=== PATIENT | female | born 1950 | race Caucasian/White ===

== ENCOUNTER 2018-01-03 15:46 | Observation (INO) ==
[2018-01-03] MEDS ORDERED: GI Cocktail 40 ML EACH PO ONE (16:00)
[2018-01-03] MEDS ORDERED: Aspirin 81 MG TAB.CHEW PO ONE (16:00)
--- NOTE | 2018-01-03 16:02 | Emergency Department Note ---
Disposition Clinical Impression: Chest pain Qualifiers: Chest pain type: unspecified Qualified Code(s): R07.9 - Chest pain, unspecified Disposition: Admitted As Inpatient Condition: Good Chest Pain HPI - General Stated Complaint: CP Time Seen by Provider: 01/03/18 15:52 Source: patient Mode of arrival: wheelchair Limitations: no limitations Vital Signs Reviewed: Yes Nursing Notes Reviewed: Yes - History of Present Illness HPI Narrative: Patient presents via wheelchair to the ED with the chief complaint of chest pain. Patient reports that she started having some epigastric and retrosternal chest discomfort last night that lasted for several hours. States that it felt like reflux and she drank an entire bottle of Pepcid without relief. Woke up this morning and went to her appointment with her lung specialist for COPD and had a recurrence of her pain, but this time. She states it doubled her over. Was associated with some mild diaphoresis and shortness of breath. She does state she is more short of breath than usual and it is exertional. Her pain is gone now, but she did describe it as a heavy pressure and burning sensation. Did radiate through to her back. Was not tearing or ripping. Did not get any numbness, weakness or heaviness associated with it. No abdominal pain. Some nausea but no vomiting. She did have a heart catheter 5 years ago that she reports was unremarkable and a stress test about 2 years ago. No Stents or bypasses. However, her medical record does indicate a history of coronary artery disease - Related Data Home Medications Medication Instructions Recorded Confirmed Acetylcysteine 600 mg PO BID 01/03/18 01/03/18 [R-Obipmf-t-Cysteine] Albuterol Neb [Proventil Neb] 2.5 mg IH TID 01/03/18 01/03/18 Albuterol Sulfate [Proair Hfa] 2 puff IH DAILY PRN 01/03/18 01/03/18 Aspirin Enteric Coated [Aspirin EC] 81 mg PO DAILY 01/03/18 01/03/18 Diclofenac Sodium [Voltaren] 1 appl TP QID 01/03/18 01/03/18 Furosemide [Lasix] 40 mg PO DAILY 01/03/18 01/03/18 Gabapentin [Neurontin] 800 mg PO TID 01/03/18 01/03/18 LORazepam [Ativan] 0.5 mg PO Q6H PRN 01/03/18 01/03/18 Mometasone/Formoterol [Dulera 200 2 puff IH BID 01/03/18 01/03/18 Mcg/5 Mcg Inhaler] Nitroglycerin [Nitrostat] 0.4 mg SL Q5MIN PRN 01/03/18 01/03/18 Omeprazole [PriLOSEC] 20 mg PO DAILY 01/03/18 01/03/18 Oxygen 2 l IH DAILY 01/03/18 01/03/18 Theophylline Anhydrous [Theodur] 0.5 tab PO BID 01/03/18 01/03/18 Tiotropium [Spiriva] 18 mcg IH 0700 01/03/18 01/03/18 Valsartan [Diovan] 160 mg PO DAILY 01/03/18 01/03/18 Zafirlukast [Accolate] 20 mg PO BID 01/03/18 01/03/18 amLODIPine [Norvasc] 5 mg PO DAILY 01/03/18 01/03/18 hydroCHLOROthiazide 25 mg PO DAILY 01/03/18 01/03/18 [Hydrochlorothiazide] Allergies Allergy/AdvReac Type Severity Reaction Status Date / Time hydroxyzine [From Vistaril] Allergy Rash Verified 02/06/16 09:44 prednisone Allergy Rash Verified 02/06/16 09:44 Review of Systems: As reviewed in the HPI. All other systems reviewed are negative or normal. 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 - Social History Smoking Status: Former smoker Alcohol use: Reports: none Drug use: Reports: none Physical Exam CONSTITUTIONAL: [well appearing, alert and in no acute distress] EYES: [EOMI, clear conjunctiva, PERRLA] HENT: [Normocephalic, atraumatic, moist mucus membranes, normal oropharynx] NECK: [normal inspection, full ROM, trachea midline, no obvious swelling] PULMONARY: [normal lung sounds bilaterally, decreased breath sounds bilateral bases, normal chest rise and fall, no respiratory distress or stridor, no wheezes, no rales, no rhonchi CARDIOVASCULAR: [regular rate, regular rhythm, normal heart sounds, no murmurs, distal extremities are warm and well perfused] GASTROINSTESTINAL: [soft, non-tender, non-rigid, non-distended, no guarding, no rebound, normal bowel sounds] GENITOURINARY/RECTAL: [deferred] NEUROLOGIC: [Alert, oriented x3, normal speech, moves all extremities] EXTREMITIES: [Normal inspection, full ROM, no tenderness, no pedal edema, normal capillary refill] MUSCULOSKELETAL: [no gross deformities, atraumatic] SKIN: [No cyanosis, no diaphoresis, normal color, warm, no rash] PSYCHIATRIC: [normal mood and affect] Course Course Narrative: Patient presenting with chest pain. Assuming her troponin is normal. Her heart score is 5. We will admit for further workup. - Reevaluation(s) Reevaluation #1: Patient admitted to the hospital service. Patient states that the GI cocktail helped the pain that was in her throat, but that she still was having the different pain. She described earlier in the left side of her chest. She now states that the pain had been previously radiating to her jaw, left trapezius and into her left shoulder. Patient was agreeable with admission. Vital Signs Temperature 97.9 F 01/03/18 16:09 Pulse Rate 79 01/03/18 16:09 Respiratory Rate 14 01/03/18 16:09 Blood Pressure 154/83 01/03/18 16:09 O2 Sat by Pulse Oximetry 97 01/03/18 16:09 Temperature 97.9 F 01/03/18 16:09 Pulse Rate 74 01/03/18 19:17 Respiratory Rate 18 01/03/18 19:27 Blood Pressure 152/97 01/03/18 19:27 O2 Sat by Pulse Oximetry 96 01/03/18 19:17 Oxygen Delivery Oxygen Delivery Room Air Chest Pain - MDM Narrative Medical decision making narrative: Chest X-Ray 01/03/18 16:00 IMPRESSION: No acute focal airspace consolidation. D/ / Al Wallace MD / Al Wallace MD Interpreting Provider: Al Wallace MD 1800 hrs. No chest pain at this time. Troponins negative. Admission for further workup and management. - Medical Records Medical records reviewed: Yes I reviewed the patient's medical records. - Lab Data Lab results reviewed: Yes I reviewed the patient's lab results. Result diagrams: 01/03/18 16:41 01/03/18 16:41 Lab Results 01/03/18 01/03/18 01/03/18 Range/Units 16:41 16:41 16:41 WBC 6.6 (4.3-11.1) K/mcL RBC 5.17 H (3.82-4.97) M/mcL Hgb 14.7 (11.5-15.4) g/dL Hct 43.9 (35.3-44.9) % MCV 84.9 (83.0-100.0) fL MCH 28.4 (28.0-33.3) pg MCHC 33.5 (31.6-35.5) g/dL RDW 12.7 (11.5-14.5) % Plt Count 173 (140-400) K/mcL MPV 10.3 (9.4-12.4) fL Immature Gran % 0.3 (0-4) % Seg Neutrophils % 58.4 % Lymphocytes % 27.2 % Monocytes % 6.5 % Eosinophils % 7.1 % Basophils % 0.5 % Neutrophils # 3.8 (1.6-8.9) K/mcL Lymphocytes # 1.8 (0.6-4.6) K/mcL Monocytes # 0.4 (0.0-1.3) K/mcL Eosinophils # 0.5 (0.0-0.6) K/mcL Basophils # 0.0 (0.0-0.2) K/mcL Sodium 140 (136-145) mEq/L Potassium 3.6 (3.5-5.1) mEq/L Chloride 105 (98-107) mEq/L Carbon Dioxide 29 (23-29) mEq/L BUN 14 (8-23) mg/dL Creatinine 0.57 L (0.60-1.20) mg/dL Est GFR ( Amer) > 60 (> 60) Est GFR (Non-Af Amer) > 60 (> 60) BUN/Creatinine Ratio 25 (6-26) Glucose 113 H (70-105) mg/dL Calculated Osmolality 291 (280-300) Calcium 9.2 (8.6-10.3) mg/dL Troponin I < 0.03 (< 0.04) ng/mL B-Natriuretic Peptide 11 (Less than 100) pg/mL Urine Color (Yellow) Urine Clarity (Clear) Urine pH (5.0-8.0) pH Units Ur Specific [place] (1.010-1.025) Urine Protein (Neg-Trace) mg/dL Urine Glucose (UA) (Normal) mg/dL Urine Ketones (Negative) mg/dL Urine Blood (Negative) Urine Nitrite (Negative) Urine Bilirubin (Negative) Urine Urobilinogen (Normal) mg/dL Ur Leukocyte Esterase (Negative) Urine Microscopic RBC (0-3) per hpf Urine Microscopic WBC (0-3) per hpf Ur Squamous Epith Cells (None-Few) per lpf Urine Bacteria (None-Few) per hpf Hyaline Casts (None-Few) per lpf Ur Culture Indicated? (NO) 01/03/18 Range/Units 17:33 WBC (4.3-11.1) K/mcL RBC (3.82-4.97) M/mcL Hgb (11.5-15.4) g/dL Hct (35.3-44.9) % MCV (83.0-100.0) fL MCH (28.0-33.3) pg MCHC (31.6-35.5) g/dL RDW (11.5-14.5) % Plt Count (140-400) K/mcL MPV (9.4-12.4) fL Immature Gran % (0-4) % Seg Neutrophils % % Lymphocytes % % Monocytes % % Eosinophils % % Basophils % % Neutrophils # (1.6-8.9) K/mcL Lymphocytes # (0.6-4.6) K/mcL Monocytes # (0.0-1.3) K/mcL Eosinophils # (0.0-0.6) K/mcL Basophils # (0.0-0.2) K/mcL Sodium (136-145) mEq/L Potassium (3.5-5.1) mEq/L Chloride (98-107) mEq/L Carbon Dioxide (23-29) mEq/L BUN (8-23) mg/dL Creatinine (0.60-1.20) mg/dL Est GFR ( Amer) (> 60) Est GFR (Non-Af Amer) (> 60) BUN/Creatinine Ratio (6-26) Glucose (70-105) mg/dL Calculated Osmolality (280-300) Calcium (8.6-10.3) mg/dL Troponin I (< 0.04) ng/mL B-Natriuretic Peptide (Less than 100) pg/mL Urine Color Yellow (Yellow) Urine Clarity Cloudy A (Clear) Urine pH 7.5 (5.0-8.0) pH Units Ur Specific [place] 1.019 (1.010-1.025) Urine Protein Trace (Neg-Trace) mg/dL Urine Glucose (UA) Normal (Normal) mg/dL Urine Ketones Negative (Negative) mg/dL Urine Blood Negative (Negative) Urine Nitrite Positive A (Negative) Urine Bilirubin Negative (Negative) Urine Urobilinogen Normal (Normal) mg/dL Ur Leukocyte Esterase Small H (Negative) Urine Microscopic RBC 0-3 (0-3) per hpf Urine Microscopic WBC 3-5 H (0-3) per hpf Ur Squamous Epith Cells Many H (None-Few) per lpf Urine Bacteria Many H (None-Few) per hpf Hyaline Casts Moderate H (None-Few) per lpf Ur Culture Indicated? NO. A (NO) - Radiology Data Radiology results reviewed: Yes I reviewed the patient's radiology results. - EKG Data EKG attestation: Yes I reviewed and interpreted this EKG. EKG results narrative: Sinus rhythm, poor R-wave progression, normal intervals, normal axis, no acute ischemic changes Heart Score - Score History: Moderately Suspicious EKG: Normal Age: Greater than 65 Risk Factors: Equal/Greater than 3 risk factor or history of atherosclerotic disease Troponin: Less than normal limit HEART Score Total: 5 Attestation Statement - Attestation Attestation: This documentation is done with the assistance of Dragon dictation. Despite efforts made to ensure accuracy, there may be inaccuracies in paperback machine operator or spelling and typographical errors. I examined this patient and my medical decision-making was reviewed with the Resident Physician. I agree with the documented findings, disposition and treatment plan as described except to the extent set forth below. Patient seen and evaluated on arrival by Dr. Dahl and myself, agree with his evaluation management plan, I supervised the care of the patient's stay. Patient's is concern for chest pain. She states that she has had what appeared to be more epigastric type symptoms but she has been using above and beyond her usual medications is not going away. She does have a history of coronary disease in the past. Regular cardiac workup on her and realized assessment. She is in agreement with this plan. Most likely admission.
[2018-01-03 17:22] LABS: Basophils % 0.5 %; Eosinophils # 0.5 K/mcL (0.0-0.6); Eosinophils % 7.1 %; Hematocrit 43.9 % (35.3-44.9); Hemoglobin 14.7 g/dL (11.5-15.4); Immature Granulocytes % 0.3 % (0-4); Lymphocytes # 1.8 K/mcL (0.6-4.6); Lymphocytes % 27.2 %; Mean Corpuscular HGB Conc 33.5 g/dL (31.6-35.5); Mean Corpuscular Hemoglobin 28.4 pg (28.0-33.3); Mean Corpuscular Volume 84.9 fL (83.0-100.0); Mean Platelet Volume 10.3 fL (9.4-12.4); Monocytes # 0.4 K/mcL (0.0-1.3); Monocytes % 6.5 %; Neutrophils # 3.8 K/mcL (1.6-8.9); Platelet Count 173 K/mcL (140-400); Red Blood Count 5.17 M/mcL (3.82-4.97); Red Cell Distribution Width 12.7 % (11.5-14.5); Segmented Neutrophils % 58.4 %
[2018-01-03 17:38] LABS: Bilirubin,Urine Negative (Negative); Blood,Urine Negative (Negative); Clarity,Urine Cloudy (Clear); Color,Urine Yellow (Yellow); Glucose,Urine (UA) Normal (Normal); Ketones,Urine Negative (Negative); Leukocyte Esterase,Urine Small (Negative); Nitrite,Urine Positive (Negative); PH,Urine 7.5 pH Units (5.0-8.0); Protein,Urine Trace mg/dL (Neg-Trace); Specific Gravity,Urine 1.019 (1.010-1.025); Urobilinogen,Urine Normal (Normal)
[2018-01-03 17:40] LABS: Bacteria,Urine Many per hpf (None-Few); Hyaline Casts,Urine Moderate per lpf (None-Few); RBC,Urine 0-3 per hpf (0-3); Squamous Epithelial Cell,Urine Many per lpf (None-Few)
[2018-01-03] MEDS ORDERED: cefTRIAXone 1,000 MG in Water for inj. (sterile) 20 ML 10 ML IVPB ONE (17:42)
[2018-01-03 17:50] LABS: BUN/Creatinine Ratio 25 (6-26); Blood Urea Nitrogen 14 mg/dL (8-23); Calcium 9.2 mg/dL (8.6-10.3); Carbon Dioxide 29 mEq/L (23-29); Chloride 105 mEq/L (98-107); Glucose 113 mg/dL (70-105); Osmolality,Calculated 291 (280-300); Potassium 3.6 mEq/L (3.5-5.1); Sodium 140 mEq/L (136-145); eGFR For Non-African Americans > 60 (> 60)
[2018-01-03 17:52] LABS: Troponin I < 0.03 ng/mL (< 0.04)
[2018-01-03] MEDS ORDERED: Nitroglycerin 0.4 MG TAB.SUBL SL PRN (18:24)
[2018-01-03] MEDS ORDERED: *HR* LORazepam 0.5 MG TABLET PO PRN (18:24)
[2018-01-03] MEDS ORDERED: Naloxone 0.4 MG/ML INJ IVP PRN (18:26)
[2018-01-03] MEDS ORDERED: traMADol 50 MG TABLET PO PRN (18:26)
[2018-01-03] MEDS ORDERED: Acetaminophen 325 MG TABLET PO PRN (18:26)
--- NOTE | 2018-01-03 18:39 | Internal Med History&Physical ---
Date of Encounter: 01/03/18 Time of Encounter: 17:30 Internal Medicine - H&P: HPI Chief complaint: CP Admitted From: Emergency Dept Plans for Post Hospital Care: Home History of present illness: Ms. Mcmullen is a 67 year old female w/PMH of arthritis, CHF, COPD, CAD, GERD, HLD, HTN, and borderline diabetes presents from the ED with chief complaint of chest pain that began last night and lasted all night with waxing and waning symptoms. Patient states symptoms worse with exertion and she would become short of breath, tired, and have a heaviness in her chest. Alleviated with rest. States pain is in the center of her chest in the center of her back between her shoulder blades. Presents as burning and pressure with associated nausea, diaphoresis, headache. Reports chronic cough d/t COPD. Reports hx of GERD and taking entire bottle of Pepto-Bismol last night w/o relief. Denies hx of [place] or stents. States she had heart cath approx. 5 years ago and nuclear stress test approx. 2 years ago w/adverse rxn to nuclear contrast. Denies recent illness, fever, chills, vomiting, changes in vision, unusual bleeding, abdominal pain, diarrhea, constipation, dizziness, lightheadedness, numbness, tingling, pre-syncope, or syncope. Past Med Surg Social Fam HX - Past Medical History Source: patient, old records reviewed Medical history: arthritis, CHF, COPD, coronary artery disease, GERD, hyperlipidemia, hypertension, other Additional medical history: angina, hypoglycemia Psychiatric history: no psych history - Past Surgical History Surgical History: appendectomy, cholecystectomy, other (Right lower lobectomy ( was believed to have lung cancer but found to be histoplasmosis), breast lumpectomy) Additional surgical history: cyst removed from breast, right lower lobectomy, HISTOPLASOMOSIS - Social History Smoking Status: Former smoker Packs per day: 3 PPD - Reports quitting >20 years ago Smokeless Tobacco Status: No Alcohol use: none Drug use: none Current living situation: Home Activity Level: Uses cane/walker Recent Out of Country Travel Within the Last 8 Weeks: No Exposure or Possible Exposure to Illness During Travel: No - Family History Father Adopted: No Race: Family Member Ethnicity: Non- Living Status: Age at : 95 Cause of : Organ failure Hx Family Cardiac Disorders: Yes (CABG, HF, CAD) Hx Family Genitourinary Disorders: Yes (CKD) Hx Family Endocrine Disorder: Yes (DM) Mother Race: Family Member Ethnicity: Non- Living Status: Still Living Hx Family Cardiac Disorders: Yes (5 stents, HD) Hx Family Musculoskeletal Disorders: Yes (Arthritis) Brother Race: Family Member Ethnicity: Non- Living Status: Still Living Hx Family Endocrine Disorder: Yes (DM) Sister Race: Family Member Ethnicity: Non- Living Status: Age at : 24 Cause of : Cirrhosis Internal Medicine - H&P: Meds Acetylcysteine [V-Zhdcbo-f-Cysteine] 600 mg PO BID 01/03/18 [History] Albuterol Neb [Proventil Neb] 2.5 mg IH TID 01/03/18 [History] Albuterol Sulfate [Proair Hfa] 2 puff IH DAILY PRN 01/03/18 [History] Aspirin Enteric Coated [Aspirin EC] 81 mg PO DAILY 01/03/18 [History] Diclofenac Sodium [Voltaren] 1 appl TP QID 01/03/18 [History] Furosemide [Lasix] 40 mg PO DAILY 01/03/18 [History] Gabapentin [Neurontin] 800 mg PO TID 01/03/18 [History] LORazepam [Ativan] 0.5 mg PO Q6H PRN 01/03/18 [History] Mometasone/Formoterol [Dulera 200 Mcg/5 Mcg Inhaler] 2 puff IH BID 01/03/18 [ History] Nitroglycerin [Nitrostat] 0.4 mg SL Q5MIN PRN 01/03/18 [History] Omeprazole [PriLOSEC] 20 mg PO DAILY 01/03/18 [History] Oxygen 2 l IH DAILY 01/03/18 [History] Theophylline Anhydrous [Theodur] 0.5 tab PO BID 01/03/18 [History] Tiotropium [Spiriva] 18 mcg IH 0700 01/03/18 [History] Valsartan [Diovan] 160 mg PO DAILY 01/03/18 [History] Zafirlukast [Accolate] 20 mg PO BID 01/03/18 [History] amLODIPine [Norvasc] 5 mg PO DAILY 01/03/18 [History] hydroCHLOROthiazide [Hydrochlorothiazide] 25 mg PO DAILY 01/03/18 [History] 3 Allergy/AdvReac Type Severity Reaction Status Date / Time hydroxyzine [From Vistaril] Allergy Rash Verified 02/06/16 09:44 prednisone Allergy Rash Verified 02/06/16 09:44 All Systems PM: A 10-system review of systems was performed and is negative for pertinent findings except as documented above in the HPI. - Constitutional Constitutional: as per HPI, fatigue, falls, weakness (Bilateral LEs), no chills , no fever(s), no night sweats - EENT Eyes: no change in vision, no discharge, no pain, no photophobia Ears: no ear discharge, no ear pain, no tinnitus Nose, mouth and throat: no dysphagia, no nasal discharge, no neck pain, no sore throat - Breasts Breasts: as per HPI - Cardiovascular Cardiovascular ROS IM: as per HPI, chest pain, diaphoresis, dyspnea, dyspnea on exertion, no lightheadedness, no palpitations, no syncope - Respiratory Respiratory: as per HPI, cough, dyspnea, dyspnea on exertion, no wheezing, no excessive phlegm production - Gastrointestinal Gastrointestinal: as per HPI, nausea, no abdominal pain, no diarrhea, no hematemesis, no hematochezia, no melena, no vomiting - Genitourinary Genitourinary: no change in urinary stream, no dysuria, no flank pain, no hematuria Menstruation: as per HPI - Musculoskeletal Musculoskeletal ROS IM: no numbness, no tingling - Integumentary Integumentary IM: no rash, no unusual bruising - Neurological Neurological ROS: no confusion, no convulsions, no focal weakness, no numbness, no tingling, no tremor(s) - Psychiatric Psychiatric: as per HPI - Endocrine Endocrine IM: as per HPI - Hematologic/Lymphatic Hematologic/Lymphatic: no easy bruising - Allergic/Immunologic Allergic/Immunologic: as per HPI - Constitutional Vitals: Temp Pulse Resp BP Pulse Ox 97.9 F 84 16 167/84 96 01/03/18 16:09 01/03/18 18:05 01/03/18 18:05 01/03/18 18:05 01/03/18 18:05 General appearance: Present: cooperative, mild distress (CP), A&O X 3, pleasant , obese, answers questions appropriately Exam: Patient examined at bedside in ED. Patient reports intermittent chest pressure which waxes and wanes. Describes pain and centralized chest and central back. Worse with exertion and alleviated by rest. Patient unsure of symptoms due to GERD or cardiac etiology. Reports nausea and SOB, but states she is always SOB d /t COPD/asthma. Reports lower flank pain d/t unresolved UTI. Denies any other complaints at this time. VS: 97.9F temp, HR 87, RR 18, BP 159/85, SpO2 96% on RA. - Head Head exam: Present: atraumatic, normocephalic - Eye Eye exam: Present: PERRL, conjuntiva pink, sclera anicteric Pupils: Present: PERRL - ENT ENT exam: Present: normal exam - Neck Neck exam general surgery: Present: normal inspection, supple, trachea midline. Absent: lymphadenopathy - Respiratory Respiratory exam: Present: CTAB. Absent: accessory muscle use, rales, rhonchi, wheezes - Cardiovascular Cardiovascular exam: Present: RRR, +S1, +S2. Absent: diastolic murmur, gallop, rubs, systolic murmur - GI/Abdominal GI/Abdominal exam: Present: normal bowel sounds, soft, no peritoneal signs. Absent: distended, tenderness - Rectal Rectal exam: Present: deferred - Additional comments: exam deferred. - Extremities Exam Extremities exam: Present: pedal edema, warm, radial pulses palpable and symmetrical. Absent: calf tenderness, cyanotic - Back Exam Back exam: Present: normal inspection - Neurological Exam Neurological exam: Present: alert, CN II-XII intact, oriented X3, no focal deficits. Absent: pronater drift, facial droop, speech deficit - Psychiatric Psychiatric exam: Present: normal affect, normal mood - Skin Skin exam: Present: dry, intact Internal Med - H&P Results - Labs CBC & Chem 7: 01/03/18 16:41 01/03/18 16:41 - EKG Data EKG shows normal: sinus rhythm - EKG Data Prior EKG available for review: yes EKG comments: 01/03/18 18:45 EKG dated 02/05/16 shows sinus rhythm. EKG dated 01/03/18 shows sinus rhythm with abnormal R-wave progression and early transition. - Diagnostic Studies Chest x-ray Additional comments: Impressions Chest X-Ray 01/03/18 16:00 IMPRESSION: No acute focal airspace consolidation. D/ / Al Wallace MD / Al Wallace MD Interpreting Provider: Al Wallace MD - Assessment and plan (1) Chest pain Current Visit: Yes Status: Acute Assessment and plan: Acute CP that began last night and lasted all night with waxing and waning symptoms. GI versus cardiac etiology. Patient states symptoms worse with exertion and she would become short of breath, tired, and have a heaviness in her chest. Alleviated with rest. States pain is in the center of her chest in the center of her back between her shoulder blades. Presents as burning and pressure with associated nausea, diaphoresis, headache. Reports chronic cough d/ t COPD. Reports hx of GERD and taking entire bottle of Pepto-Bismol last night w /o relief. Denies hx of [place] or stents. States she had heart cath approx. 5 years ago and nuclear stress test approx. 2 years ago w/adverse rxn to nuclear contrast. Initial troponin <0.03 Will trend. Echocardiogram. ASA. 80 mg Lipitor NOW. SL Nitro PRN. Continuous cardiac telemetry. Supplemental O2 w/titration and SpO2 monitoring. Consider adding Cardiology consult if troponins and/or Echocardiogram results abnormal. Patient is high risk for further morbidity and cardiac event based on current CP sx, hx of CP/heart cath w/o stent placement, hx of CAD/CHF/HLD/HTN/Obesity. Observation. Qualifiers: Chest pain type: unspecified Qualified Code(s): R07.9 - Chest pain, unspecified (2) Nausea Current Visit: Yes Status: Acute Assessment and plan: Acute nausea w/CP sx. Pt. also has hx of GERD that she reports is not well- controlled. Will hold PO Prilosec and administer IVP Protonix 40 mg BID. GI cocktail in ED. IVP Phenergan 12.5 mg Q6HR PRN for N/V. (3) SOB (shortness of breath) Current Visit: Yes Status: Acute Assessment and plan: Acute on chronic SOB accompanying CP sx. Pt. also has COPD/asthma hx. Continue pts. inhalers and asthma medications. Supplemental O2 w/titration and SpO2 monitoring. (4) UTI (urinary tract infection) Current Visit: Yes Status: Acute Assessment and plan: Acute UTI. Pt. states she was diagnosed 1 week ago and placed on PO abx w/o much improvement. IVPB Rocephin for infection coverage. Monitor I&O. Qualifiers: Urinary tract infection type: site unspecified Hematuria presence: without hematuria Qualified Code(s): N39.0 - Urinary tract infection, site not specified (5) HTN (hypertension) Current Visit: Yes Status: Chronic Assessment and plan: Hx of chronic HTN. Monitor pt. and VS. Continue pts. Norvasc, hydrochlorothiazide, and Valsartan. Add IVP hydralazine 10 mg Q6HR PRN w/ parameters. Qualifiers: Hypertension type: essential hypertension Qualified Code(s): I10 - Essential (primary) hypertension (6) HLD (hyperlipidemia) Current Visit: Yes Status: Chronic Assessment and plan: Hx of chronic HLD. Lipid panel in a.m. labs. Pt. does not currently take statin. Consider adding Lipitor to home medications based on lipid panel results if warranted. Qualifiers: Hyperlipidemia type: pure hypercholesterolemia Qualified Code(s): E78.00 - Pure hypercholesterolemia, unspecified; E78.0 - Pure hypercholesterolemia (7) CAD (coronary artery disease) Current Visit: Yes Status: Chronic Assessment and plan: Hx of chronic CAD. Hx of heart cath 5 years ago w/o stent placement and nuclear stress test 2 years ago. Pt. denies hx of [place]. Continue pts. HTN and HLD medications. ASA. Qualifiers: Coronary Disease-Associated Artery/Lesion type: unspecified vessel or lesion type [place] vs. transplanted heart: [place] heart Associated angina: angina presence unspecified Qualified Code(s): I25.10 - Atherosclerotic heart disease of [place] coronary artery without angina pectoris (8) CHF (congestive heart failure) Current Visit: Yes Status: Chronic Assessment and plan: Hx of chronic CHF. Stable. BNP 11 on admission. Will monitor IV fluid use and PO intake carefully. Continuous cardiac telemetry. Echocardiogram. Qualifiers: Heart failure type: diastolic Heart failure chronicity: chronic Qualified Code(s): I50.32 - Chronic diastolic (congestive) heart failure (9) COPD (chronic obstructive pulmonary disease) Current Visit: Yes Status: Chronic Assessment and plan: Hx of chronic COPD. Stable. Pt. reports cough. Mucinex. Continue pts. inhalers and asthma medications. Supplemental O2 w/titration and SpO2 monitoring. Qualifiers: COPD type: chronic bronchitis Chronic bronchitis type: simple Qualified Code(s): J41.0 - Simple chronic bronchitis (10) GERD (gastroesophageal reflux disease) Current Visit: Yes Status: Chronic Assessment and plan: Hx of chronic GERD that pt. reports is not well-controlled. GI cocktail in ED. Hold pts. Prilosec and administer IVP Protonix 40 mg BID. IVP Phenergan 12.5 mg Q6HR PRN for N/V. Qualifiers: Esophagitis presence: without esophagitis Qualified Code(s): K21.9 - Gastro -esophageal reflux disease without esophagitis (11) DVT prophylaxis Current Visit: Yes Status: Acute Assessment and plan: Heparin SQ Q8HR for DVT prophylaxis. Monitor pt. for signs of bleeding. - Time Spent With Patient Total time spent is greater than 50% in coordination of care (as documented) at patient's floor/unit and/or counseling patient: Greater than 35 minutes
[2018-01-03] MEDS ORDERED: *HR* Promethazine 25 MG/ML VIAL IVP PRN (18:51)
[2018-01-03] MEDS: Gabapentin 400 MG CAPSULE PO SCH (22:38)
[2018-01-03] MEDS: (Diclofenac Sodium [Voltaren] 1 APPL) TP SCH (22:38)
[2018-01-03] MEDS: Pantoprazole 40 MG VIAL IVP SCH (22:39)
[2018-01-03] MEDS: *HR* Heparin 5,000 UNIT/ML VIAL SQ SCH (22:39)
[2018-01-03] MEDS: *HR* Acetylcysteine 20% 600 MG/3 ML ORAL SYRINGE PO SCH (22:44)
[2018-01-04] MEDS: Albuterol 2.5 MG/3 ML NEBULIZER IH SCH ×2 (00:30→10:23)
[2018-01-04] MEDS: Budesonide/Formoterol 160/4.5 1 PUFF INH IH SCH ×2 (00:33→10:23)
[2018-01-04 05:23] LABS: Basophils % 0.5 %; Eosinophils # 0.5 K/mcL (0.0-0.6); Eosinophils % 8.4 %; Hematocrit 37.8 % (35.3-44.9); Immature Granulocytes % 0.2 % (0-4); Lymphocytes # 2.1 K/mcL (0.6-4.6); Lymphocytes % 33.2 %; Mean Corpuscular HGB Conc 34.4 g/dL (31.6-35.5); Mean Corpuscular Hemoglobin 28.8 pg (28.0-33.3); Mean Corpuscular Volume 83.6 fL (83.0-100.0); Mean Platelet Volume 10.2 fL (9.4-12.4); Monocytes # 0.4 K/mcL (0.0-1.3); Neutrophils # 3.3 K/mcL (1.6-8.9); Platelet Count 162 K/mcL (140-400); Red Blood Count 4.52 M/mcL (3.82-4.97); Red Cell Distribution Width 12.8 % (11.5-14.5); Segmented Neutrophils % 51.7 %
[2018-01-04] MEDS ORDERED: Pantoprazole 40 MG VIAL IVP SCH (06:00)
[2018-01-04 06:03] LABS: Alanine Aminotransferase 10 Units/L (7-52); Albumin 3.8 g/dL (3.5-5.7); Albumin/Globulin Ratio 1.7 (1.1-2.2); Alkaline Phosphatase 63 Units/L (34-104); Aspartate Amino Transferase 21 Units/L (13-39); BUN/Creatinine Ratio 25 (6-26); Bilirubin,Total 0.5 mg/dL (0.3-1.0); Blood Urea Nitrogen 14 mg/dL (8-23); Calcium 8.8 mg/dL (8.6-10.3); Carbon Dioxide 26 mEq/L (23-29); Chloride 104 mEq/L (98-107); Cholesterol 186 mg/dL (< 200); Globulin 2.3 g/dL (2.4-3.5); Glucose 102 mg/dL (70-105); HDL Cholesterol 37 mg/dL (40-59); LDL Cholesterol,Calculated 97 mg/dL (0-99); Osmolality,Calculated 289 (280-300); Potassium 3.7 mEq/L (3.5-5.1); Sodium 139 mEq/L (136-145); Total Protein 6.1 g/dL (6.4-8.9); Triglycerides 261 mg/dL (< 150); eGFR For Non-African Americans > 60 (> 60)
[2018-01-04] MEDS: Pantoprazole 40 MG VIAL IVP SCH (06:21)
[2018-01-04] MEDS: *HR* Heparin 5,000 UNIT/ML VIAL SQ SCH (06:21)
[2018-01-04] MEDS ORDERED: Tiotropium 18 MCG inhalation IH SCH (07:00)
[2018-01-04 07:08] LABS: Estimated Average Glucose 111 mg/dl; Hemoglobin A1C 5.5 %
[2018-01-04] MEDS: Gabapentin 400 MG CAPSULE PO SCH (08:55)
[2018-01-04] MEDS: (Diclofenac Sodium [Voltaren] 1 APPL) TP SCH (08:58)
[2018-01-04] MEDS: *HR* Acetylcysteine 20% 600 MG/3 ML ORAL SYRINGE PO SCH (08:59)
[2018-01-04] MEDS ORDERED: amLODIPine 5 MG TABLET PO SCH (09:00)
[2018-01-04] MEDS ORDERED: Aspirin Enteric Coated 81 MG Tablet PO SCH (09:00)
[2018-01-04] MEDS ORDERED: Furosemide 40 MG TABLET PO SCH (09:00)
[2018-01-04] MEDS ORDERED: Valsartan 160 MG TABLET PO SCH (09:00)
[2018-01-04] MEDS ORDERED: hydroCHLOROthiazide 25 MG TABLET PO SCH (09:00)
[2018-01-04 11:14] VITALS: BP 149/84
--- NOTE | 2018-01-04 12:52 | Discharge Summary ---
- NOTES TO OUTPATIENT PROVIDER Notes to Outpatient Provider: [facility] . Also, PPI was switched to non-formulary lansoprazole as that has been effective in the past for GERD. Orders not resulted at time of discharge: Pending orders 01/03/18 18:37 Respiratory Infection Panel [MOLMIC] Stat Date of Encounter: 01/04/18 Time of Encounter: 12:45 - Discharge Diagnosis (1) Chest pain Priority: Primary Status: Resolved Assessment and Plan: . Comments: . Qualifiers: Chest pain type: other chest pain Qualified Code(s): R07.89 - Other chest pain; R07.8 - Other chest pain (2) GERD (gastroesophageal reflux disease) Priority: Primary Status: Chronic Qualifiers: Esophagitis presence: without esophagitis Qualified Code(s): K21.9 - Gastro -esophageal reflux disease without esophagitis (3) CAD (coronary artery disease) Priority: Primary Status: Chronic Qualifiers: Coronary Disease-Associated Artery/Lesion type: unspecified vessel or lesion type [place] vs. transplanted heart: [place] heart Associated angina: angina presence unspecified Qualified Code(s): I25.10 - Atherosclerotic heart disease of [place] coronary artery without angina pectoris Hospital course: Ms. Mcmullen is a 67 year old woman with history of arthritis, CHF, COPD, CAD, GERD, HLD, HTN, and borderline diabetes who presented from the ED with chief complaint of chest pain that began the night before and lasted all night with waxing and waning symptoms. Patient stated symptoms were worse with exertion and she would become short of breath, tired, and would have a heaviness on her chest. Alleviated with rest. Stated pain was in the center of her chest and in the center of her back between her shoulder blades. Presented as burning and pressure with associated nausea, diaphoresis, headache. Reported chronic cough d/t COPD. Reported hx of GERD and taking entire bottle of Pepto-Bismol the night before admission w/o relief. Denied hx of MO or stents. Stated she had heart cath approx. 5 years ago and nuclear stress test approx. 2 years ago w /adverse rxn to nuclear contrast. Denied recent illness, fever, chills, vomiting, changes in vision, unusual bleeding, abdominal pain, diarrhea, constipation, dizziness, lightheadedness, numbness, tingling, pre-syncope, or syncope. # Chest pain, unclear etiology - patient thinks that her pain is similar to her acid reflux pain since her lansoprazole was switched to a formulary PPI. At the same time, she said that she gets chest pressure when she walks which resolves with rest. She said that she never had the MO but may have had some CAD for which she sees a lumber straightener. I do not have access to prior coronary angiogram at this time. I would have preferred to check a myocardial perfusion stress test considering her symptoms but patient is adamant that she would like to be discharged right away. She had a normal EKG< a normal CXR and negative serial troponin, ruling out ACS. TTE showed EF 60-65% and overall normal. She has an appt with her lumber straightener on 01/08/18 which I encouraged her to keep. I also prescribed lansoprazole at her request as it had alleviated GERD symptoms in the past. # Pyuria She had pyuria, no fever or leukocytosis. She has just completed a course of oral antibiotic as outpatient. Her other medical problems remained stable and no the rmedication changes were made. Discharge discussed with: patient, nurse - Time Spent with Patient Total time spent providing and/or coordinating discharge services: Greater than 30 minutes - Discharge Medications Prescriptions: Lansoprazole [Prevacid] 30 mg PO DAILY #30 capsule.dr Crocker Medications: Acetylcysteine [U-Poksfb-o-Cysteine] 600 mg PO BID 01/03/18 [History] Albuterol Neb [Proventil Neb] 2.5 mg IH TID 01/03/18 [History] Albuterol Sulfate [Proair Hfa] 2 puff IH DAILY PRN 01/03/18 [History] Aspirin Enteric Coated [Aspirin EC] 81 mg PO DAILY 01/03/18 [History] Diclofenac Sodium [Voltaren] 1 appl TP QID 01/03/18 [History] Furosemide [Lasix] 40 mg PO DAILY 01/03/18 [History] Gabapentin [Neurontin] 800 mg PO TID 01/03/18 [History] LORazepam [Ativan] 0.5 mg PO Q6H PRN 01/03/18 [History] Mometasone/Formoterol [Dulera 200 Mcg/5 Mcg Inhaler] 2 puff IH BID 01/03/18 [ History] Nitroglycerin [Nitrostat] 0.4 mg SL Q5MIN PRN 01/03/18 [History] Oxygen 2 l IH DAILY 01/03/18 [History] Theophylline Anhydrous [Theodur] 0.5 tab PO BID 01/03/18 [History] Tiotropium [Spiriva] 18 mcg IH 0700 01/03/18 [History] Valsartan [Diovan] 160 mg PO DAILY 01/03/18 [History] Zafirlukast [Accolate] 20 mg PO BID 01/03/18 [History] amLODIPine [Norvasc] 5 mg PO DAILY 01/03/18 [History] hydroCHLOROthiazide [Hydrochlorothiazide] 25 mg PO DAILY 01/03/18 [History] Lansoprazole [Prevacid] 30 mg PO DAILY #30 capsule. 01/04/18 [Rx] Allergies/Adverse Reactions: 3 Allergy/AdvReac Type Severity Reaction Status Date / Time hydroxyzine [From Vistaril] Allergy Rash Verified 02/06/16 09:44 prednisone Allergy Rash Verified 02/06/16 09:44 Date of admission: 01/03/18 18:08 Primary care physician: Genet Ramirez MD Consults: 01/03/18 18:28 Consult to Occupational Therapy [CONS] Routine Comment: Evaluate, develop and implement POC Reason for Consult: Patient reports difficulty w/ambulation d/t bilateral LE weakness. Please assess patient for ambulation strength, stability , safety, and possible home assistive/ rehabilitation needs for post-discharge planning. Does patient have active BEDREST order?: No Is patient medically & hemodynamically stable?: Yes Patient assessed for mobility or mobilized this visit?: No Consult to Brush Worker [CONS] Routine Reason for SW Consult: Please assess patient for possible home needs for post -discharge planning. 01/03/18 18:29 Consult to Physical Therapy [CONS] Routine Comment: Evaluate, develop and implement POC Reason for Consult: Patient reports difficulty w/ambulation d/t bilateral LE weakness. Please assess patient for ambulation strength, stability , safety, and possible home assistive/ rehabilitation needs for post-discharge planning. Does patient have active BEDREST order?: No Is patient medically & hemodynamically stable?: Yes Patient assessed for mobility or mobilized this visit?: No Discharging clinician: Citlaly Narayanan Anticipated date of discharge: 01/04/18 - Constitutional Vitals: Temp Pulse Resp BP Pulse Ox 98.0 F 73 19 149/84 94 01/04/18 11:11 01/04/18 11:11 01/04/18 11:11 01/04/18 11:11 01/04/18 11:11 General appearance: Present: cooperative, A&O X 3, pleasant, no acute distress, obese, answers questions appropriately Exam: . - Head Head exam: Present: atraumatic, normal inspection - Eye Eye exam: Present: PERRL. Absent: scleral icterus - ENT ENT exam: Present: mucous membranes moist - Neck Neck exam general surgery: Present: supple. Absent: nuchal rigidity - Respiratory Respiratory exam: Present: CTAB. Absent: rales, rhonchi, wheezes - Cardiovascular Cardiovascular exam: Present: RRR, +S1, +S2. Absent: gallop, systolic murmur - GI/Abdominal GI/Abdominal exam: Present: soft. Absent: distended, firm, guarding, rebound - Extremities Exam Extremities exam: Present: warm. Absent: pedal edema - Neurological Exam Neurological exam: Present: alert, oriented X3, no focal deficits. Absent: facial droop - Psychiatric Psychiatric exam: Present: normal affect, normal mood - Patient Status Disposition: Home, Self-Care Condition: Good - Discharge Instructions Follow Up With: Genet Ramirez MD [Primary Care Provider] - Forms: ED Satisfaction Letter - Diet and Activity Activity: resume usual activities as tolerated (if you develop chest pain, do not exert further until seeny by your lumber straightener) Diet: advance to your usual diet
--- NOTE | 2018-01-06 13:58 | Electrocardiograph Report ---
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
--- NOTE | 2018-01-06 15:14 | Electrocardiograph Report ---
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
== END 2018-01-04 13:19 | disposition home or self-care (01) ==
LOC: 3BNU 15:46 → EMEROOARM 15:46 → 3BNU 20:15
PROVIDERS: ADMIT Internal Medicine; ATTEND Internal Medicine

== ENCOUNTER 2018-11-28 13:38 | Observation (INO) ==
--- NOTE | 2018-11-28 14:09 | Emergency Department Note ---
Disposition Clinical Impression: Diverticulitis, Kidney lesion Chest pain Qualifiers: Chest pain type: unspecified Qualified Code(s): R07.9 - Chest pain, unspecified Disposition: Admitted As Inpatient Condition: Fair Time of Disposition: 16:08 General Adult HPI - General Stated complaint: Chest pain, SOB Time Seen by Provider: 11/28/18 13:39 Nursing Notes Reviewed: Yes Vital Signs Reviewed: Yes - History of Present Illness HPI Narrative: Presents with chest heaviness which is left-sided and started this morning at 10:00 and is intermittent lasting up to 30 minutes at a time and is not worse with exertion. She does have associated diaphoresis and dyspnea. Does radiate through to the back. Does not have a history of coronary disease but does have a history of heart failure. There is no pleuritic aspect. She denies any pain or swelling of the lower extremities. She presents per EMS. Social history: Stopped smoking 20 years ago. Family history: Positive for heart disease in both parents - Related Data Home Medications Medication Instructions Recorded Confirmed Acetylcysteine 600 mg PO BID 01/03/18 01/03/18 [F-Qhcdux-s-Cysteine] Albuterol Neb [Proventil Neb] 2.5 mg IH TID 01/03/18 01/03/18 Albuterol Sulfate [Proair Hfa] 2 puff IH DAILY PRN 01/03/18 01/03/18 Aspirin Enteric Coated [Aspirin EC] 81 mg PO DAILY 01/03/18 01/03/18 Diclofenac Sodium [Voltaren] 1 appl TP QID 01/03/18 01/03/18 Furosemide [Lasix] 40 mg PO DAILY 01/03/18 01/03/18 Gabapentin [Neurontin] 800 mg PO TID 01/03/18 01/03/18 LORazepam [Ativan] 0.5 mg PO Q6H PRN 01/03/18 01/03/18 Mometasone/Formoterol [Dulera 200 2 puff IH BID 01/03/18 01/03/18 Mcg/5 Mcg Inhaler] Nitroglycerin [Nitrostat] 0.4 mg SL Q5MIN PRN 01/03/18 01/03/18 Oxygen 2 l IH DAILY 01/03/18 01/03/18 Theophylline Anhydrous [Theodur] 0.5 tab PO BID 01/03/18 01/03/18 Tiotropium [Spiriva] 18 mcg IH 0700 01/03/18 01/03/18 Valsartan [Diovan] 160 mg PO DAILY 01/03/18 01/03/18 Zafirlukast [Accolate] 20 mg PO BID 01/03/18 01/03/18 amLODIPine [Norvasc] 5 mg PO DAILY 01/03/18 01/03/18 hydroCHLOROthiazide 25 mg PO DAILY 01/03/18 01/03/18 [Hydrochlorothiazide] Previous Rx's Medication Instructions Recorded Lansoprazole [Prevacid] 30 mg PO DAILY #30 capsule. 01/04/18 Allergies Allergy/AdvReac Type Severity Reaction Status Date / Time hydroxyzine [From Vistaril] Allergy Rash Verified 02/06/16 09:44 prednisone Allergy Rash Verified 02/06/16 09:44 All systems ED: reviewed and negative except as stated. Past Medical History - Past Medical History Medical history: Reports: arthritis, CHF, COPD, coronary artery disease, GERD, hyperlipidemia, hypertension, other Surgical history: Reports: appendectomy, cholecystectomy, other Psychiatric history: Reports: no psych history MEDICAL DETAIL REPRESENTATIVE history: Reports: other - Social History Smoking Status: Former smoker Smokeless Tobacco Status: No Alcohol use: Reports: none Drug use: Reports: none Physical Exam CONSTITUTIONAL: Well-appearing; well-nourished; A&O X 3, in no apparent distress HEAD: Normocephalic; atraumatic EYES: PERRL, no scleral icterus NOSE: The nose is normal in appearance without rhinorrhea NECK: No JVD or distended neck veins RESP: Normal chest excursion with respiration; breath sounds clear and equal bilaterally; no wheezes, rhonchi, or rales CARD: Regular rhythm, without murmurs, rub or gallop ABD: Non-distended; non-tender, soft, without rigidity, rebound or guarding,no pulsatile mass CHEST: No pain with palpation SKIN: Normal for age and race; warm and dry without diaphoresis ; no apparent lesions EXTREMITIES: Pulses are 2 plus and equal times 4 extremities, no peripheral edema or calf muscle pain Course Vital Signs Temperature 97.6 F 11/28/18 14:17 Pulse Rate 97 11/28/18 14:17 Respiratory Rate 22 11/28/18 14:17 Blood Pressure 158/85 11/28/18 14:17 O2 Sat by Pulse Oximetry 96 11/28/18 14:17 Temperature 98.4 F 11/28/18 15:02 Pulse Rate 82 11/28/18 15:50 Respiratory Rate 18 11/28/18 15:50 Blood Pressure 133/63 11/28/18 15:50 O2 Sat by Pulse Oximetry 95 11/28/18 15:50 Oxygen Delivery Oxygen Delivery Room Air Medical Decision Making - MDM Narrative Medical decision making narrative: I did review the pre-arrival EKG as well as EKG done here at 1:51 PM showing normal sinus rhythm with a rate of 57 and without acute ischemic change. The patient's symptoms are very concerning for acute coronary syndrome and we do have labs including troponin pending, chest x-ray and the patient is being watched closely on the respite care provider. She will be admitted to the hospital. She does take aspirin. 1409 I did review the EKG showing normal sinus rhythm with a rate of 96 without acute ischemic change or evidence of arrhythmia 1419 I did speak with Dr. Craft who accepts the patient for admission. The patient is being admitted because of intermittent chest pain which is concerning for acute coronary syndrome. She has had an aspirin. She also did have incidental note of diverticulitis on the abdominal CT scan and so I did start her on Unasyn and Flagyl for inpatient treatment although there is no evidence of perforation or abscess at this time. I did see the patient again recently and she is comfortable with this approach. Nontoxic in appearance at this time. 1607 The patient also has a kidney lesion which will require further evaluation either as an inpatient or upon discharge per radiology recommendations 1608 - Medical Records Medical records reviewed: Yes I reviewed the patient's medical records. - Lab Data Lab results reviewed: Yes I reviewed the patient's lab results. Result diagrams: 11/28/18 14:29 11/28/18 14:29 Lab Results 11/28/18 11/28/18 11/28/18 Range/Units 14:00 14:29 14:29 WBC 11.9 H (4.3-11.1) K/mcL RBC 4.86 (3.82-4.97) M/mcL Hgb 14.2 (11.5-15.4) g/dL Hct 41.1 (35.3-44.9) % MCV 84.6 (83.0-100.0) fL MCH 29.2 (28.0-33.3) pg MCHC 34.5 (31.6-35.5) g/dL RDW 12.7 (11.5-14.5) % Plt Count 150 (140-400) K/mcL MPV 10.3 (9.4-12.4) fL Immature Gran % 0.5 (0-4) % Seg Neutrophils % 74.6 % Lymphocytes % 14.3 % Monocytes % 5.4 % Eosinophils % 4.8 % Basophils % 0.4 % Neutrophils # 8.9 (1.6-8.9) K/mcL Lymphocytes # 1.7 (0.6-4.6) K/mcL Monocytes # 0.7 (0.0-1.3) K/mcL Eosinophils # 0.6 (0.0-0.6) K/mcL Basophils # 0.1 (0.0-0.2) K/mcL Sodium (136-145) mEq/L Potassium (3.5-5.1) mEq/L Chloride (98-107) mEq/L Carbon Dioxide (23-29) mEq/L BUN (8-23) mg/dL Creatinine (0.60-1.20) mg/dL Est GFR ( Amer) (> 60) Est GFR (Non-Af Amer) (> 60) BUN/Creatinine Ratio (6-26) Glucose (70-105) mg/dL Calculated Osmolality (280-300) Calcium (8.6-10.3) mg/dL Troponin I (< 0.04) ng/mL B-Natriuretic Peptide 30 (Less than 100) pg/mL Urine Color Yellow (Yellow) Urine Clarity Clear (Clear) Urine pH 6.0 (5.0-8.0) pH Units Ur Specific [place] 1.007 L (1.010-1.025) Urine Protein Negative (Neg-Trace) mg/dL Urine Glucose (UA) Normal (Normal) mg/dL Urine Ketones Negative (Negative) mg/dL Urine Blood Negative (Negative) Urine Nitrite Negative (Negative) Urine Bilirubin Negative (Negative) Urine Urobilinogen Normal (Normal) mg/dL Ur Leukocyte Esterase Negative (Negative) Ur Culture Indicated? NO (NO) 11/28/18 Range/Units 14:29 WBC (4.3-11.1) K/mcL RBC (3.82-4.97) M/mcL Hgb (11.5-15.4) g/dL Hct (35.3-44.9) % MCV (83.0-100.0) fL MCH (28.0-33.3) pg MCHC (31.6-35.5) g/dL RDW (11.5-14.5) % Plt Count (140-400) K/mcL MPV (9.4-12.4) fL Immature Gran % (0-4) % Seg Neutrophils % % Lymphocytes % % Monocytes % % Eosinophils % % Basophils % % Neutrophils # (1.6-8.9) K/mcL Lymphocytes # (0.6-4.6) K/mcL Monocytes # (0.0-1.3) K/mcL Eosinophils # (0.0-0.6) K/mcL Basophils # (0.0-0.2) K/mcL Sodium 137 (136-145) mEq/L Potassium 3.3 L (3.5-5.1) mEq/L Chloride 103 (98-107) mEq/L Carbon Dioxide 24 (23-29) mEq/L BUN 11 (8-23) mg/dL Creatinine 0.67 (0.60-1.20) mg/dL Est GFR ( Amer) > 60 (> 60) Est GFR (Non-Af Amer) > 60 (> 60) BUN/Creatinine Ratio 16 (6-26) Glucose 142 H (70-105) mg/dL Calculated Osmolality 286 (280-300) Calcium 9.0 (8.6-10.3) mg/dL Troponin I < 0.03 (< 0.04) ng/mL B-Natriuretic Peptide (Less than 100) pg/mL Urine Color (Yellow) Urine Clarity (Clear) Urine pH (5.0-8.0) pH Units Ur Specific [place] (1.010-1.025) Urine Protein (Neg-Trace) mg/dL Urine Glucose (UA) (Normal) mg/dL Urine Ketones (Negative) mg/dL Urine Blood (Negative) Urine Nitrite (Negative) Urine Bilirubin (Negative) Urine Urobilinogen (Normal) mg/dL Ur Leukocyte Esterase (Negative) Ur Culture Indicated? (NO) - Radiology Data Radiology results reviewed: Yes I reviewed the patient's radiology results.
[2018-11-28 14:46] LABS: Basophils # 0.1 K/mcL (0.0-0.2); Basophils % 0.4 %; Eosinophils # 0.6 K/mcL (0.0-0.6); Eosinophils % 4.8 %; Hematocrit 41.1 % (35.3-44.9); Hemoglobin 14.2 g/dL (11.5-15.4); Immature Granulocytes % 0.5 % (0-4); Lymphocytes # 1.7 K/mcL (0.6-4.6); Lymphocytes % 14.3 %; Mean Corpuscular HGB Conc 34.5 g/dL (31.6-35.5); Mean Corpuscular Hemoglobin 29.2 pg (28.0-33.3); Mean Corpuscular Volume 84.6 fL (83.0-100.0); Mean Platelet Volume 10.3 fL (9.4-12.4); Monocytes # 0.7 K/mcL (0.0-1.3); Monocytes % 5.4 %; Neutrophils # 8.9 K/mcL (1.6-8.9); Platelet Count 150 K/mcL (140-400); Red Blood Count 4.86 M/mcL (3.82-4.97); Red Cell Distribution Width 12.7 % (11.5-14.5); Segmented Neutrophils % 74.6 %; White Blood Count 11.9 K/mcL (4.3-11.1)
[2018-11-28 15:03] LABS: BUN/Creatinine Ratio 16 (6-26); Blood Urea Nitrogen 11 mg/dL (8-23); Carbon Dioxide 24 mEq/L (23-29); Chloride 103 mEq/L (98-107); Glucose 142 mg/dL (70-105); Osmolality,Calculated 286 (280-300); Potassium 3.3 mEq/L (3.5-5.1); Sodium 137 mEq/L (136-145); Troponin I < 0.03 ng/mL (< 0.04); eGFR For African Americans > 60 (> 60); eGFR For Non-African Americans > 60 (> 60)
[2018-11-28 15:37] LABS: Bilirubin,Urine Negative (Negative); Blood,Urine Negative (Negative); Clarity,Urine Clear (Clear); Color,Urine Yellow (Yellow); Glucose,Urine (UA) Normal (Normal); Ketones,Urine Negative (Negative); Leukocyte Esterase,Urine Negative (Negative); Nitrite,Urine Negative (Negative); Protein,Urine Negative (Neg-Trace); Specific Gravity,Urine 1.007 (1.010-1.025); Urobilinogen,Urine Normal (Normal)
[2018-11-28] MEDS ORDERED: Ampicillin/Sulbactam 3,000 MG in 0.9 % Sodium Chloride Mini Bag 100 ML IVPB STA (15:54)
[2018-11-28] MEDS ORDERED: MetroNIDAZOLE 500 MG/100 ML 500 MG/100 ML BAG IVPB ONE (15:54)
[2018-11-28] MEDS ORDERED: Naloxone 0.4 MG/ML INJ IVP PRN (16:16)
[2018-11-28] MEDS ORDERED: Albuterol 2.5 MG/3 ML NEBULIZER IH PRN (16:19)
[2018-11-28] MEDS ORDERED: *HR* LORazepam 0.5 MG TABLET PO PRN (16:21)
[2018-11-28 16:46] LABS: Prothrombin Time 11.6 Seconds (9.4-12.1)
[2018-11-28 16:49] LABS: Activated Partial Thrombo Time 32.9 Seconds (26.0-36.0)
[2018-11-28] MEDS ORDERED: Nitroglycerin 0.4 MG TAB.SUBL SL PRN (16:52)
--- NOTE | 2018-11-28 17:04 | Internal Med History&Physical ---
Date of Encounter: 11/28/18 Time of Encounter: 16:55 Internal Medicine - H&P: HPI Chief complaint: chest pressure and abdominal pain Admitted From: Home Plans for Post Hospital Care: Home History of present illness: Ms. Mcmullen is a 68 year old female PMH of HTN, HFpEF, HLD, COPD on 2 litter of O2. Patient presented to the hospital due to chest pressure and shortness of breath. Patient reported she intermittently has episodes of chest pain and shortness of breath which she believes are related to her Hx of CODP. But today at around 10am while she was watching TV, she started feeling non-radiating, retro-sternal chest pressure associated with shortness of breath lasting >30 minutes. Reported she took some nitroglycerin SubL and furosemide and it helped the shortness of breath but she remained feeling the chest pressure. And decided to come to the ED to be checked. Patient also reported for the past couple of days she has been having sharp, contrast abdominal pain more significant on the lower sides of the abdomen, associated with nausea, subjective fever, and Dysuria. She thought she had a UTI. In ED a CT abd/pelvis was done: Acute, uncomplicated sigmoid colon diverticulitis (no discrete abscess or pneumoperitoneum evident). Denies diarrhea, loose stool or bloody stool. Hospitalist team was called for management. Past Med Surg Social Fam HX - Past Medical History Medical history: arthritis, CHF, COPD, coronary artery disease, GERD, hyperlipidemia, hypertension, other Additional medical history: angina, hypoglycemia Psychiatric history: no psych history - Past Surgical History Surgical History: appendectomy, cholecystectomy, other Additional surgical history: cyst removed from breast, right lower lobectomy, H ISTOPLASOMOSIS - Social History Smoking Status: Former smoker Smokeless Tobacco Status: No Alcohol use: none Drug use: none - Family History Brother Family Member Ethnicity: Non- Living Status: Still Living Hx Family Endocrine Disorder: Yes (DM) Sister Family Member Ethnicity: Non- Living Status: Father Adopted: No Family Member Ethnicity: Non- Living Status: Hx Family Cardiac Disorders: Yes (CABG, HF, CAD) Hx Family Respiratory Disorders: Yes Hx Family Cancer: Yes Hx Family GI Disorders: Yes Hx Family Endocrine Disorder: Yes (DM) Hx Family Neuromuscular Disorders: No Hx Family Neurologic Disorders: No Hx Family HEENT Disorders: No Hx Family Autoimmune Disorders: No Mother Family Member Ethnicity: Non- Living Status: Still Living Hx Family Cardiac Disorders: Yes (5 stents, HD) Hx Family Endocrine Disorder: Yes Internal Medicine - H&P: Meds Acetylcysteine [O-Yzqens-o-Cysteine] 600 mg PO BID 01/03/18 [History] Albuterol Neb [Proventil Neb] 2.5 mg IH TID 01/03/18 [History] Albuterol Sulfate [Proair Hfa] 2 puff IH DAILY PRN 01/03/18 [History] Aspirin Enteric Coated [Aspirin EC] 81 mg PO DAILY 01/03/18 [History] Diclofenac Sodium [Voltaren] 1 appl TP QID 01/03/18 [History] Furosemide [Lasix] 40 mg PO DAILY 01/03/18 [History] Gabapentin [Neurontin] 800 mg PO TID 01/03/18 [History] LORazepam [Ativan] 0.5 mg PO Q6H PRN 01/03/18 [History] Mometasone/Formoterol [Dulera 200 Mcg/5 Mcg Inhaler] 2 puff IH BID 01/03/18 [History] Nitroglycerin [Nitrostat] 0.4 mg SL Q5MIN PRN 01/03/18 [History] Oxygen 2 l IH DAILY 01/03/18 [History] Theophylline Anhydrous [Theodur] 0.5 tab PO BID 01/03/18 [History] Tiotropium [Spiriva] 18 mcg IH 0700 01/03/18 [History] Valsartan [Diovan] 160 mg PO DAILY 01/03/18 [History] Zafirlukast [Accolate] 20 mg PO BID 01/03/18 [History] amLODIPine [Norvasc] 5 mg PO DAILY 01/03/18 [History] hydroCHLOROthiazide [Hydrochlorothiazide] 25 mg PO DAILY 01/03/18 [History] Lansoprazole [Prevacid] 30 mg PO DAILY #30 capsule. 01/04/18 [Rx] Allergy/AdvReac Type Severity Reaction Status Date / Time hydroxyzine [From Vistaril] Allergy Rash Verified 02/06/16 09:44 prednisone Allergy Rash Verified 02/06/16 09:44 All Systems PM: A 10-system review of systems was performed and is negative for pertinent findings except as documented above in the HPI. - Constitutional Constitutional: fever(s), weakness, no chills - EENT Nose, mouth and throat: no mouth pain - Cardiovascular Cardiovascular ROS IM: chest pain (pressure like. ), dyspnea, no dyspnea on exertion, no edema, no irregular heart rhythm, no lightheadedness, no palpitations - Respiratory Respiratory: no cough, no wheezing, no excessive phlegm production - Gastrointestinal Gastrointestinal: abdominal pain, nausea, no vomiting - Genitourinary Genitourinary: dysuria, flank pain - Musculoskeletal Musculoskeletal ROS IM: no back pain - Integumentary Integumentary IM: no erythema, no non-healing lesions - Neurological Neurological ROS: no headache(s) - Psychiatric Psychiatric: no hopelessness, no irritability - Endocrine Endocrine IM: no cold intolerance, no excessive sweating - Hematologic/Lymphatic Hematologic/Lymphatic: no lymphadenopathy - Allergic/Immunologic Allergic/Immunologic: no GI upset with certain foods - Constitutional Vitals: Temp Pulse Resp BP Pulse Ox 98.4 F 85 16 136/64 96 11/28/18 15:02 11/28/18 16:22 11/28/18 16:22 11/28/18 16:22 11/28/18 16:22 Exam: Vitals: Reviewed General: Alert and oriented x4. In mild distress due to LLQ abdominal pain and chest pressure Cardiovascular: RRR, normal S1 & S2, no rubs, murmurs or gallops. Lungs: CTA b/l, no wheezes or crackles. Abdomen: Soft, LLQ tenderness to superficial palpation, no rigidity. Extremities: No deformity, no edema or tenderness, no joint swelling or clubbing. Neurological: Normal cognition and motor skills. Rest of the physical exam is non contributory Internal Med - H&P Results - Labs CBC & Chem 7: 11/28/18 14:29 11/28/18 14:29 Labs: Short CBC 11/28/18 Range/Units 14:29 WBC 11.9 H (4.3-11.1) K/mcL Hgb 14.2 (11.5-15.4) g/dL Hct 41.1 (35.3-44.9) % Plt Count 150 (140-400) K/mcL Neutrophils # 8.9 (1.6-8.9) K/mcL BMP 11/28/18 14:29 Sodium 137 Potassium 3.3 L Chloride 103 Carbon Dioxide 24 BUN 11 Creatinine 0.67 Glucose 142 H Calcium 9.0 Cardiac Enzymes 11/28/18 Range/Units 14:29 Troponin I < 0.03 (< 0.04) ng/mL Urine 11/28/18 Range/Units 14:00 Urine Color Yellow (Yellow) Urine Clarity Clear (Clear) Urine pH 6.0 (5.0-8.0) pH Units Ur Specific [place] 1.007 L (1.010-1.025) Urine Protein Negative (Neg-Trace) mg/dL Urine Glucose (UA) Normal (Normal) mg/dL - Impressions ITS Impressions Abdomen/Pelvis CT 11/28/18 14:22 IMPRESSION: 1. Acute, uncomplicated sigmoid colon diverticulitis (no discrete abscess or pneumoperitoneum evident). 2. Nonspecific upper pole left kidney lesion should be further evaluated with CT or MRI abdomen attention kidneys with IV contrast. 3. Mild intra and extrahepatic bile duct dilatation status post cholecystectomy typical of reservoir effect. RECOMMENDATIONS: CT or MRI abdomen attention kidneys with IV contrast D/ / King Landis / King Landis Interpreting Provider: King Landis Chest X-Ray 11/28/18 14:22 IMPRESSION: 1.Cardiomegaly with mild vascular congestion. D/ / Edgar Be MD / Edgar Be MD Interpreting Provider: Edgar Be MD - Diagnostic Studies Chest x-ray Status: image reviewed by me (cardiomegaly) - Assessment and Plan (1) Chest pain Current Visit: Yes Status: Acute Assessment and plan: Patient with Hx of CAD, HTN, CHF. presenting with retro-sternal chest pressure lastiong >40 minutes alleviated with nitro. Plan Serial troponin EKG Nitroglycerin 0.5 sublingual 3 every 15 minute when necessary Carvedilol 6.25 mg by mouth twice a day. Aspirin 81 mg by mouth daily Telemetry monitoring Cardiology consulted patient reported she us unable to have stress test done due to having an awful experience in the past reported she is scheduled to have a cardiac MRI on Saturday at [facility]. TTE ordered to evaluate for wall motion or/and valvular abnormalities. Qualifiers: Chest pain type: unspecified Qualified Code(s): R07.9 - Chest pain, unspecified (2) Diverticulitis Current Visit: Yes Status: Acute Assessment and plan: T/CT abd pelvis wo no iv no oral IMPRESSION: 1. Acute, uncomplicated sigmoid colon diverticulitis (no discrete abscess or pneumoperitoneum evident). 2. Nonspecific upper pole left kidney lesion should be further evaluated with CT or MRI abdomen attention kidneys with IV contrast. 3. Mild intra and extrahepatic bile duct dilatation status post cholecystectomy typical of reservoir effect. Plan patient started on ciprofloxacin 400mg/IV BID and metronidazole 500mg/IV Q8HRs clear liquid diet, will advance as tolerated. (3) DVT prophylaxis Current Visit: No Status: Acute Assessment and plan: started on heparin subq (4) CAD (coronary artery disease) Current Visit: No Status: Chronic Assessment and plan: on aspirin 81mg/PO daily Qualifiers: Coronary Disease-Associated Artery/Lesion type: unspecified vessel or lesion type [place] vs. transplanted heart: [place] heart Associated angina: angina presence unspecified Qualified Code(s): I25.10 - Atherosclerotic heart disease of [place] coronary artery without angina pectoris (5) CHF (congestive heart failure) Current Visit: No Status: Chronic Assessment and plan: patient is euvolemic. will continue home dose of furosemide 40mg/PO daily on a bb strict intake and output plus daily weight. Qualifiers: Qualified Code(s): I50.32 - Chronic diastolic (congestive) heart failure (6) COPD (chronic obstructive pulmonary disease) Current Visit: No Status: Chronic Assessment and plan: chest is clear to auscultation. on bronchodilators Q4RT PRN. on spiriva. Qualifiers: COPD type: chronic bronchitis Chronic bronchitis type: simple Qualified Code(s): J41.0 - Simple chronic bronchitis (7) HTN (hypertension) Current Visit: No Status: Chronic Assessment and plan: Blood pressures well controlled on furosemide. carvedilol added. Qualifiers: Hypertension type: essential hypertension Qualified Code(s): I10 - Essential (primary) hypertension (8) IBS (irritable bowel syndrome) Current Visit: No Status: Chronic Qualifiers: Irritable bowel syndrome type: with diarrhea Qualified Code(s): K58.0 - Irritable bowel syndrome with diarrhea (9) Hypokalemia Current Visit: Yes Status: Acute Assessment and plan: electrolyte replaced. will repeat potassium level tomorrow morning. - Time Spent With Patient Total time spent is greater than 50% in coordination of care (as documented) at patient's floor/unit and/or counseling patient: Greater than 35 minutes (50)
[2018-11-28] MEDS: Furosemide 40 MG TABLET PO SCH (18:29)
[2018-11-28] MEDS: Aspirin Enteric Coated 81 MG Tablet PO SCH (18:33)
[2018-11-28] MEDS: *HR* Acetylcysteine 20% 600 MG/3 ML ORAL SYRINGE PO SCH (21:08)
[2018-11-28] MEDS: *HR* Heparin 5,000 UNIT/ML VIAL SQ SCH (21:08)
[2018-11-28] MEDS: MetroNIDAZOLE 500 MG/100 ML 500 MG/100 ML BAG IVPB SCH (23:22)
[2018-11-29 01:32] LABS: Basophils % 0.5 %; Eosinophils # 0.4 K/mcL (0.0-0.6); Eosinophils % 5.5 %; Hematocrit 40.8 % (35.3-44.9); Hemoglobin 13.8 g/dL (11.5-15.4); Immature Granulocytes % 0.4 % (0-4); Lymphocytes # 1.4 K/mcL (0.6-4.6); Lymphocytes % 18.8 %; Mean Corpuscular HGB Conc 33.8 g/dL (31.6-35.5); Mean Corpuscular Hemoglobin 29.2 pg (28.0-33.3); Mean Corpuscular Volume 86.4 fL (83.0-100.0); Mean Platelet Volume 10.3 fL (9.4-12.4); Monocytes # 0.5 K/mcL (0.0-1.3); Monocytes % 6.2 %; Neutrophils # 5.1 K/mcL (1.6-8.9); Platelet Count 152 K/mcL (140-400); Red Blood Count 4.72 M/mcL (3.82-4.97); Red Cell Distribution Width 12.6 % (11.5-14.5); Segmented Neutrophils % 68.6 %; White Blood Count 7.5 K/mcL (4.3-11.1)
[2018-11-29 01:52] LABS: Alanine Aminotransferase 20 Units/L (7-52); Albumin 4.1 g/dL (3.5-5.7); Albumin/Globulin Ratio 1.5 (1.1-2.2); Alkaline Phosphatase 74 Units/L (34-104); Aspartate Amino Transferase 25 Units/L (13-39); BUN/Creatinine Ratio 18 (6-26); Blood Urea Nitrogen 11 mg/dL (8-23); Calcium 8.6 mg/dL (8.6-10.3); Carbon Dioxide 25 mEq/L (23-29); Chloride 103 mEq/L (98-107); Globulin 2.8 g/dL (2.4-3.5); Glucose 139 mg/dL (70-105); Magnesium 1.8 mg/dL (1.6-2.6); Osmolality,Calculated 290 (280-300); Phosphorous 3.8 mg/dL (2.7-4.5); Potassium 3.8 mEq/L (3.5-5.1); Sodium 139 mEq/L (136-145); Total Protein 6.9 g/dL (6.4-8.9); eGFR For African Americans > 60 (> 60); eGFR For Non-African Americans > 60 (> 60)
[2018-11-29] MEDS: traMADol 50 MG TABLET PO PRN ×2 (03:35→09:43)
[2018-11-29] MEDS: *HR* Heparin 5,000 UNIT/ML VIAL SQ SCH ×3 (05:19→21:22)
[2018-11-29] MEDS: MetroNIDAZOLE 500 MG/100 ML 500 MG/100 ML BAG IVPB SCH ×2 (09:34→15:17)
[2018-11-29] MEDS: Furosemide 40 MG TABLET PO SCH (09:34)
[2018-11-29] MEDS: Aspirin Enteric Coated 81 MG Tablet PO SCH (09:34)
[2018-11-29] MEDS: *HR* Acetylcysteine 20% 600 MG/3 ML ORAL SYRINGE PO SCH ×2 (10:15→21:28)
--- NOTE | 2018-11-29 10:28 | Cardiology Consult Note ---
Date of Encounter: 11/29/18 Time of Encounter: 10:26 Assessment and Plan (1) Chest pain Current Visit: No Status: Resolved Atypical type chest pain in the setting of diverticulitis with negative cardiac markers and unremarkable EKG. Patient declines any nuclear stress test at this time and also declines and LHC. We will attempt to obtain a coronary CT angiogram during this admission in the next day or 2 while she is being treated for her diverticulitis Qualifiers: Chest pain type: other chest pain Qualified Code(s): R07.89 - Other chest pain; R07.8 - Other chest pain Discussion w patient/family: The assessment and plan as outlined above was discussed with the patient and/or family members who expressed understanding and agreement. All questions were answered. Thank you for involving us in the care of your patient. Please call with any questions. History of Present Illness Consult date: 11/29/18 Consult reason: chest and belly pain Chief complaint: CP History of present illness: Ms. Mcmullen is a 68 year old female with history of COPD hyperlipidemia heart failure with preserved ejection fraction presents with retrosternal chest pain on exertional nonradiating associated with shortness of breath currently resolved. Patient also has complaints of lower abdominal pain recently diagnosed during this admission with diverticulitis. Patient has negative cardiac markers 2 unremarkable EKG a previous stress test many years ago and L HC which were unremarkable. Patient had a diagnosis of diabetes in the past and upon discussion of an ischemic workup and she declined a chemical stress test and LHC. She states she has an outpatient CT coronary angiogram ordered through [facility]. Upon further discussion the patient is willing to proceed with a CT coronary angiogram here at [place] if feasible in the next few days. Past Med Surg Social Fam HX - Past Medical History Medical history: arthritis, CHF, COPD, coronary artery disease, GERD, hyperlipidemia, hypertension, other Additional medical history: angina, hypoglycemia Psychiatric history: no psych history - Past Surgical History Surgical History: appendectomy, cholecystectomy, other Additional surgical history: cyst removed from breast, right lower lobectomy, HISTOPLASOMOSIS - Social History Smoking Status: Former smoker Smokeless Tobacco Status: No Alcohol use: none Drug use: none - Family History Brother Family Member Ethnicity: Non- Living Status: Still Living Hx Family Endocrine Disorder: Yes (DM) Sister Family Member Ethnicity: Non- Living Status: Father Adopted: No Family Member Ethnicity: Non- Living Status: Hx Family Cardiac Disorders: Yes (CABG, HF, CAD) Hx Family Respiratory Disorders: Yes Hx Family Cancer: Yes Hx Family GI Disorders: Yes Hx Family Endocrine Disorder: Yes (DM) Hx Family Neuromuscular Disorders: No Hx Family Neurologic Disorders: No Hx Family HEENT Disorders: No Hx Family Autoimmune Disorders: No Mother Family Member Ethnicity: Non- Living Status: Still Living Hx Family Cardiac Disorders: Yes (5 stents, HD) Hx Family Endocrine Disorder: Yes Medications and Allergies Acetylcysteine [W-Obutxw-j-Cysteine] 600 mg PO BID 01/03/18 [History] Albuterol Neb [Proventil Neb] 2.5 mg IH TID 01/03/18 [History] Albuterol Sulfate [Proair Hfa] 2 puff IH DAILY PRN 01/03/18 [History] Aspirin Enteric Coated [Aspirin EC] 81 mg PO DAILY 01/03/18 [History] Diclofenac Sodium [Voltaren] 1 appl TP QID 01/03/18 [History] Furosemide [Lasix] 40 mg PO DAILY 01/03/18 [History] Gabapentin [Neurontin] 800 mg PO TID 01/03/18 [History] LORazepam [Ativan] 0.5 mg PO Q6H PRN 01/03/18 [History] Mometasone/Formoterol [Dulera 200 Mcg/5 Mcg Inhaler] 2 puff IH BID 01/03/18 [History] Nitroglycerin [Nitrostat] 0.4 mg SL Q5MIN PRN 01/03/18 [History] Oxygen 2 l IH DAILY 01/03/18 [History] Theophylline Anhydrous [Theodur] 0.5 tab PO BID 01/03/18 [History] Tiotropium [Spiriva] 18 mcg IH 0700 01/03/18 [History] Valsartan [Diovan] 160 mg PO DAILY 01/03/18 [History] Zafirlukast [Accolate] 20 mg PO BID 01/03/18 [History] amLODIPine [Norvasc] 5 mg PO DAILY 01/03/18 [History] hydroCHLOROthiazide [Hydrochlorothiazide] 25 mg PO DAILY 01/03/18 [History] Lansoprazole [Prevacid] 30 mg PO DAILY #30 capsule. 01/04/18 [Rx] Allergy/AdvReac Type Severity Reaction Status Date / Time hydroxyzine [From Vistaril] Allergy Rash Verified 11/28/18 21:44 prednisone Allergy Rash Verified 11/28/18 21:44 All Systems Review: The remainder of the systems were reviewed and are negative Physical Examination Vital Signs, Last 4 Hours Temp Pulse Resp BP Pulse Ox 11/29/18 06:53 98.1 F 74 16 141/73 92 General: Conversant, No Apparent Distress HEENT: Atraumatic, Normocephaly, Mucus Membranes Moist Neck: No JVD, Normal carotid pulses Cardiac: Reg Rate and Rhythm, Normal S1 and S2, No Murmur Lungs: Normal Breath Sounds, No Wheeze, Rales, Rhonchi Neuro: Alert and responsive, No focal deficits noted Abdomen: Soft, Non-Tender Skin: No rashes noted on visualized skin Musculoskeletal: No Chest Wall Tenderness Extremities: No Clubbing, No Cyanosis, No Edema, Normal Pulses Results 11/29/18 01:03 11/29/18 01:03 Lab Results 11/28/18 11/28/18 11/28/18 14:29 14:29 14:29 WBC 11.9 H Hgb 14.2 Hct 41.1 Plt Count 150 INR APTT Sodium 137 Potassium 3.3 L Chloride 103 Carbon Dioxide 24 BUN 11 Creatinine 0.67 Glucose 142 H Calcium 9.0 Magnesium Total Bilirubin AST ALT Alkaline Phosphatase Troponin I < 0.03 B-Natriuretic Peptide 30 11/28/18 11/28/18 11/29/18 14:29 18:58 01:03 WBC Hgb Hct Plt Count INR 1.0 APTT 32.9 Sodium Potassium Chloride Carbon Dioxide BUN Creatinine Glucose Calcium Magnesium Total Bilirubin AST ALT Alkaline Phosphatase Troponin I < 0.03 < 0.03 B-Natriuretic Peptide 11/29/18 11/29/18 01:03 01:03 WBC 7.5 Hgb 13.8 Hct 40.8 Plt Count 152 INR APTT Sodium 139 Potassium 3.8 Chloride 103 Carbon Dioxide 25 BUN 11 Creatinine 0.62 Glucose 139 H Calcium 8.6 Magnesium 1.8 Total Bilirubin 1.0 AST 25 ALT 20 Alkaline Phosphatase 74 Troponin I B-Natriuretic Peptide Consult Discharge Plan - Plan
[2018-11-29] MEDS: Tiotropium 18 MCG inhalation IH SCH ×2 (10:36→10:38)
--- NOTE | 2018-11-29 13:06 | Internal Med Progress Note ---
Hospitalist Progress Note - Encounter Date of Encounter: 11/29/18 Time of Encounter: 13:03 - Subjective Interval History: I have seen and evaluated the patient at bedside. patient reported abdominal pain but improved when compared with yesterday. denies nausea, vomiting. reported constipation for the past 4 days. - Exam Vitals: Temp Pulse Resp BP Pulse Ox 98.1 F 70 16 114/61 97 11/29/18 10:53 11/29/18 10:53 11/29/18 10:53 11/29/18 10:53 11/29/18 10:53 Exam: Vitals: Reviewed General: Alert and oriented x4. In mild distress due to abdominal pain Cardiovascular: RRR, normal S1 & S2, no rubs, murmurs or gallops. Lungs: CTA b/l, no wheezes or crackles. Abdomen: Soft, LLQ tenderness to superficial palpation, no rigidity. Extremities: No edema Neurological: Normal cognition and motor skills. Rest of the physical exam is non contributory - Assessment and Plan (1) Chest pain Current Visit: Yes Status: Acute Assessment and Plan: patient chest pain free. TTE: LVEF 60%. no valvular disfunction. Plan patient is on aspirin, and a bb cardiology recommended coranary CT angiogram while inpatient patient refused LHC and stress test. (2) Diverticulitis Current Visit: Yes Status: Acute Assessment and Plan: advance diet as tolerated. continue IV antibiotics for the next 24 hours. on ciprofloxacin and metornidazole (3) CAD (coronary artery disease) Current Visit: No Status: Chronic Assessment and Plan: On aspirin 81 mg by mouth daily. (4) CHF (congestive heart failure) Current Visit: No Status: Chronic Assessment and Plan: patient Euvolemic. Plan: continue furosemide 40mg/PO daily on a bb strict intake and output plus daily weight (5) COPD (chronic obstructive pulmonary disease) Current Visit: No Status: Chronic Assessment and Plan: No wheezing auscultation. Continue bronchodilators. Incentive spirometry. On Spiriva. (6) HTN (hypertension) Current Visit: No Status: Chronic Assessment and Plan: Blood pressures well controlled on a beta alverto and diuretic. (7) IBS (irritable bowel syndrome) Current Visit: No Status: Chronic DVT Prophylaxis: On heparin subcutaneous for DVT prophylaxis. - Summary of Assessment and Plan Summary of Assessment and Plan: Patient to remain in the hospital due to acute diverticulitis on IV antibiotics. Potential discharge tomorrow. - Time Spent with Patient Total time spent is greater than 50% in coordination of care (as documented) at patient's floor/unit and/or counseling patient: Greater than 35 minutes (40) Plan of Care Discussed with: patient (and the nurse.) Internal Medicine: Result - Labs CBC & Chem 7: 11/29/18 01:03 11/29/18 01:03 Labs: Short CBC 11/28/18 11/29/18 Range/Units 14:29 01:03 WBC 11.9 H 7.5 (4.3-11.1) K/mcL Hgb 14.2 13.8 (11.5-15.4) g/dL Hct 41.1 40.8 (35.3-44.9) % Plt Count 150 152 (140-400) K/mcL Neutrophils # 8.9 5.1 (1.6-8.9) K/mcL BMP 11/28/18 11/29/18 14:29 01:03 Sodium 137 139 Potassium 3.3 L 3.8 Chloride 103 103 Carbon Dioxide 24 25 BUN 11 11 Creatinine 0.67 0.62 Glucose 142 H 139 H Calcium 9.0 8.6 Cardiac Enzymes 11/28/18 11/28/18 11/29/18 Range/Units 14:29 18:58 01:03 Troponin I < 0.03 < 0.03 < 0.03 (< 0.04) ng/mL Liver Function 11/29/18 Range/Units 01:03 Total Bilirubin 1.0 (0.3-1.0) mg/dL AST 25 (13-39) Units/L ALT 20 (7-52) Units/L Alkaline Phosphatase 74 (34-104) Units/L Albumin 4.1 (3.5-5.7) g/dL Urine 11/28/18 Range/Units 14:00 Urine Color Yellow (Yellow) Urine Clarity Clear (Clear) Urine pH 6.0 (5.0-8.0) pH Units Ur Specific [place] 1.007 L (1.010-1.025) Urine Protein Negative (Neg-Trace) mg/dL Urine Glucose (UA) Normal (Normal) mg/dL - ABG Interpretation ABG results: PT/INR, D-dimer PT 11.6 Seconds (9.4-12.1) 11/28/18 14:29 - Impressions Impressions Abdomen/Pelvis CT 11/28/18 14:22 IMPRESSION: 1. Acute, uncomplicated sigmoid colon diverticulitis (no discrete abscess or pneumoperitoneum evident). 2. Nonspecific upper pole left kidney lesion should be further evaluated with CT or MRI abdomen attention kidneys with IV contrast. 3. Mild intra and extrahepatic bile duct dilatation status post cholecystectomy typical of reservoir effect. RECOMMENDATIONS: CT or MRI abdomen attention kidneys with IV contrast D/ / King Landis / King Landis Interpreting Provider: King Landis Chest X-Ray 11/28/18 14:22 IMPRESSION: 1.Cardiomegaly with mild vascular congestion. D/ / Edgar Be MD / Edgar Be MD Interpreting Provider: Edgar Be MD Echocardiogram 11/28/18 16:23 Impressions: LVEF 60%. Normal LV chamber size, wall thickness and systolic function. Grade 2 left ventricular diastolic dysfunction (tissue doppler evidence of elevated filling pressures). Normal right ventricular structure and function. No significant valvular dysfunction No evidence of pulmonary hypertension. Left Ventricular Wall Motion: Rest Echo Findings All wall segments showed normal motion. Findings: Study Quality * Technically adequate exam. ECG Findings * Normal sinus rhythm. Left Ventricle * LVEF 60%. * Normal LV chamber size, wall thickness and systolic function. * Grade 2 left ventricular diastolic dysfunction. Right Ventricle * Normal right ventricular structure and function. Left Atrium * Normal left atrial size. Right Atrium * Normal right atrial size. Interatrial Septum * No evidence of PFO by color Doppler. Aortic Valve * Trileaflet aortic valve. * Normal aortic valve structure. * No aortic regurgitation. * No aortic stenosis. Mitral Valve * No mitral regurgitation. * No mitral stenosis. * Normal mitral valve structure. Tricuspid Valve * Trace tricuspid regurgitation. * No tricuspid stenosis. * Normal tricuspid valve structure. * No evidence of pulmonary hypertension. Pulmonic Valve * Trace pulmonic regurgitation. Aorta * Normally sized aortic root. Pericardium * The pericardium appears normal. IVC * Normal IVC dimensions and inspiratory collapse. Pulmonary Artery * Normal visualized portions of the main pulmonary artery. Consult Discharge Plan - Plan Referrals: NONE,PCP [Primary Care Provider] - (1) Chest pain Qualifiers: Chest pain type: unspecified Qualified Code(s): R07.9 - Chest pain, unspecif ied (3) CAD (coronary artery disease) Qualifiers: Coronary Disease-Associated Artery/Lesion type: unspecified vessel or lesion type [place] vs. transplanted heart: [place] heart Associated angina: angina presence unspecified Qualified Code(s): I25.10 - Atherosclerotic heart disease of [place] coronary artery without angina pectoris (5) COPD (chronic obstructive pulmonary disease) Qualifiers: COPD type: chronic bronchitis Chronic bronchitis type: simple Qualified Code(s): J41.0 - Simple chronic bronchitis (6) HTN (hypertension) Qualifiers: Hypertension type: essential hypertension Qualified Code(s): I10 - Essential (primary) hypertension (7) IBS (irritable bowel syndrome) Qualifiers: Irritable bowel syndrome type: with diarrhea Qualified Code(s): K58.0 - Irritable bowel syndrome with diarrhea
[2018-11-29] MEDS ORDERED: Sennosides/Docusate Sodium TABLET PO PRN (13:33)
[2018-11-29] MEDS: *HR* HYDROcodone/Acet 5/325 mg TABLET PO PRN (15:44)
[2018-11-30] MEDS: MetroNIDAZOLE 500 MG/100 ML 500 MG/100 ML BAG IVPB SCH ×4 (01:02→23:39)
[2018-11-30] MEDS: *HR* HYDROcodone/Acet 5/325 mg TABLET PO PRN (01:06)
[2018-11-30 02:05] LABS: Chol/HDL Ratio 5.4 (0-4.9); Cholesterol 193 mg/dL (< 200); HDL Cholesterol 36 mg/dL (40-59); Triglycerides 464 mg/dL (< 150)
[2018-11-30] MEDS: *HR* Heparin 5,000 UNIT/ML VIAL SQ SCH ×3 (06:12→21:41)
[2018-11-30] MEDS: Tiotropium 18 MCG inhalation IH SCH (08:10)
[2018-11-30] MEDS: Aspirin Enteric Coated 81 MG Tablet PO SCH (09:46)
[2018-11-30] MEDS: *HR* Acetylcysteine 20% 600 MG/3 ML ORAL SYRINGE PO SCH ×2 (09:46→21:41)
[2018-11-30] MEDS: Furosemide 40 MG TABLET PO SCH (09:46)
[2018-11-30] MEDS ORDERED: Gadolinium Contrast Agent (WT Based) IV PRN (12:30)
--- NOTE | 2018-11-30 12:33 | Internal Med Progress Note ---
Hospitalist Progress Note - Encounter Date of Encounter: 11/30/18 Time of Encounter: 12:31 - Subjective Interval History: I have seen and evaluated the patient at bedside. Patient reported the abdominal pain is improving, she is able to walk now, which she could not ambulate due to pain. denies nausea, vomiting. reported having some shortness of breath today which improved after she got furosemide IV. - Exam Vitals: Temp Pulse Resp BP Pulse Ox 97.5 F L 77 16 142/81 93 11/30/18 10:47 11/30/18 10:47 11/30/18 10:47 11/30/18 10:47 11/30/18 10:47 Exam: Vitals: Reviewed General: Alert and oriented x4. In mild distress due to abdominal pain Cardiovascular: RRR, normal S1 & S2, no rubs, murmurs or gallops. Lungs: No wheezes. crackles lober lobes R>L. Abdomen: Soft, LLQ tenderness to superficial palpation, no rigidity. Extremities: No edema Neurological: Normal cognition and motor skills. Rest of the physical exam is non contributory - Assessment and Plan (1) Chest pain Current Visit: Yes Status: Resolved Assessment and Plan: reported being chest pain free. denies nausea or vomiting. cardiology recommended outpatient cardiac CT angiogram continue aspirin, bb and statin. (2) Diverticulitis Current Visit: Yes Status: Acute Assessment and Plan: abdominal pain improving. tolerating oral diet. continue IV antibiotics. on cipro and metronidazole GI consulted. (3) CAD (coronary artery disease) Current Visit: No Status: Chronic Assessment and Plan: On aspirin 81 mg by mouth daily. (4) COPD (chronic obstructive pulmonary disease) Current Visit: No Status: Chronic Assessment and Plan: No wheezing auscultation. c/w bronchodilators. Incentive spirometry. On Spiriva. (5) HTN (hypertension) Current Visit: No Status: Chronic (6) IBS (irritable bowel syndrome) Current Visit: No Status: Chronic (7) CHF (congestive heart failure) Current Visit: No Status: Chronic Assessment and Plan: patient with crackles at the bases b/l. furosemide increased to 40mg/IV BID. fluids restriction to 1.5 litters a day. daily weight and strict intake and out. (8) Kidney lesion Current Visit: Yes Status: Acute Assessment and Plan: patient with an upper pole kidney lesion. abdominal MR ordered DVT Prophylaxis: On heparin subQ - Summary of Assessment and Plan Summary of Assessment and Plan: patient to remain in the hospital due to acute diverticulitis. - Time Spent with Patient Total time spent is greater than 50% in coordination of care (as documented) at patient's floor/unit and/or counseling patient: Greater than 35 minutes (45) Plan of Care Discussed with: patient (and the nurse.) Internal Medicine: Result - Labs CBC & Chem 7: 11/29/18 01:03 11/29/18 01:03 - ABG Interpretation ABG results: PT/INR, D-dimer PT 11.6 Seconds (9.4-12.1) 11/28/18 14:29 Consult Discharge Plan - Plan Referrals: NONE,PCP [Primary Care Provider] - (1) Chest pain Qualifiers: Chest pain type: unspecified Qualified Code(s): R07.9 - Chest pain, unspecified (3) CAD (coronary artery disease) Qualifiers: Coronary Disease-Associated Artery/Lesion type: unspecified vessel or lesion type [place] vs. transplanted heart: [place] heart Associated angina: angina p resence unspecified Qualified Code(s): I25.10 - Atherosclerotic heart disease of [place] coronary artery without angina pectoris (4) COPD (chronic obstructive pulmonary disease) Qualifiers: COPD type: chronic bronchitis Chronic bronchitis type: simple Qualified Code(s): J41.0 - Simple chronic bronchitis (5) HTN (hypertension) Qualifiers: Hypertension type: essential hypertension Qualified Code(s): I10 - Essential (primary) hypertension (6) IBS (irritable bowel syndrome) Qualifiers: Irritable bowel syndrome type: with diarrhea Qualified Code(s): K58.0 - Irritable bowel syndrome with diarrhea (7) CHF (congestive heart failure) Qualifiers: Heart failure type: diastolic Heart failure chronicity: chronic Qualified Code(s): I50.32 - Chronic diastolic (congestive) heart failure
--- NOTE | 2018-11-30 13:43 | Cardiology Progress Note ---
Date of Encounter: 11/30/18 Time of Encounter: 13:41 Assessment and Plan (1) Chest pain Current Visit: No Status: Resolved Atypical type chest pain in the setting of diverticulitis with negative cardiac markers and unremarkable EKG. Patient declines any nuclear stress test at this time and also declines and C. Patient recently had coronary CT ordered in the outpatient setting. We have are unable to complete inpatient. She adamantly refuses proceeding with any other tests and would like to follow-up outpatient. We will reschedule her outpatient cardiac CTA. Qualifiers: Chest pain type: other chest pain Qualified Code(s): R07.89 - Other chest pain; R07.8 - Other chest pain (2) CAD (coronary artery disease) Current Visit: No Status: Chronic H/o minimal CAD on prior cardiac cath several years ago. Continue lifestyle modification. Healthy heart diet and exercise. Qualifiers: Coronary Disease-Associated Artery/Lesion type: unspecified vessel or lesion type [place] vs. transplanted heart: [place] heart Associated angina: angina presence unspecified Qualified Code(s): I25.10 - Atherosclerotic heart disease of [place] coronary artery without angina pectoris Discussion w patient/family: The assessment and plan as outlined above was discussed with the patient and/or family members who expressed understanding and agreement. All questions were answered. Thank you for involving us in the care of your patient. Please call with any questions. Subjective Principal diagnosis: Atypical chest pain Interval history: Miss Mcmullen states she still has abdominal discomfort at times. Denies any significant chest pain at this time. States that she had left arm pain when she came in. Objective Vital Signs, Last 4 Hours Temp Pulse Resp BP Pulse Ox 11/30/18 10:47 97.5 F L 77 16 142/81 93 11/30/18 09:52 93 General: Conversant, No Apparent Distress HEENT: Atraumatic, Normocephaly, Mucus Membranes Moist Neck: No JVD, Normal carotid pulses Cardiac: Reg Rate and Rhythm, Normal S1 and S2, No Murmur Lungs: Normal Breath Sounds, No Wheeze, Rales, Rhonchi Neuro: Alert and responsive, No focal deficits noted Abdomen: Soft, Other (tender) Skin: No rashes noted on visualized skin Musculoskeletal: No Chest Wall Tenderness Extremities: No Clubbing, No Cyanosis, No Edema, Normal Pulses Results 11/29/18 01:03 11/29/18 01:03 - Imaging and Cardiology Echo: report reviewed Consult Discharge Plan - Plan Referrals: NONE,PCP [Primary Care Provider] -
[2018-11-30] MEDS: Furosemide 40 MG/4 ML VIAL IVP SCH (17:48)
[2018-12-01] MEDS: *HR* Heparin 5,000 UNIT/ML VIAL SQ SCH ×3 (04:36→21:25)
[2018-12-01 05:17] LABS: BUN/Creatinine Ratio 24 (6-26); Blood Urea Nitrogen 18 mg/dL (8-23); Calcium 9.3 mg/dL (8.6-10.3); Carbon Dioxide 30 mEq/L (23-29); Chloride 99 mEq/L (98-107); Glucose 150 mg/dL (70-105); Magnesium 1.8 mg/dL (1.6-2.6); Osmolality,Calculated 295 (280-300); Potassium 3.5 mEq/L (3.5-5.1); Sodium 140 mEq/L (136-145); eGFR For African Americans > 60 (> 60); eGFR For Non-African Americans > 60 (> 60)
--- NOTE | 2018-12-01 06:25 | Electrocardiograph Report ---
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
[2018-12-01] MEDS: Tiotropium 18 MCG inhalation IH SCH (07:56)
[2018-12-01] MEDS: Aspirin Enteric Coated 81 MG Tablet PO SCH (08:26)
[2018-12-01] MEDS: MetroNIDAZOLE 500 MG/100 ML 500 MG/100 ML BAG IVPB SCH ×2 (08:26→17:56)
[2018-12-01] MEDS: Furosemide 40 MG/4 ML VIAL IVP SCH ×2 (08:26→17:57)
[2018-12-01 08:57] LABS: Estimated Average Glucose 117 mg/dl
[2018-12-01] MEDS: *HR* Acetylcysteine 20% 600 MG/3 ML ORAL SYRINGE PO SCH ×2 (09:00→21:33)
--- NOTE | 2018-12-01 09:00 | Gastroenterology Consult Note ---
<Erika Stanley - Last Filed: 12/01/18 10:57> Date of Encounter: 12/01/18 Time of Encounter: 08:59 - Assessment and plan (1) Diverticulitis Status: Acute Assessment and plan: Presented to the ED with nausea and abdominal pain CT of the abdomen and pelvis shows multifocal diverticula involving descending and sigmoid colon with acute diffuse inflammation and sigmoid colon No previous history of diverticulitis Is report history of constipation with 2-3 bowel movements a week, which is likely contributory Reports colonoscopy was within 5 years ago but was poor prep and was able to adequately visualize colonic wall Continue Cipro and Flagyl Recommend bowel regimen inpatient and outpatient to prevent stasis of stool Further recommendations by Dr. Can (2) GERD (gastroesophageal reflux disease) Status: Chronic Assessment and plan: Reports chronic GERD with previous history of ulcer On Zantac and Prevacid home and continues to complain of epigastric pain Discussed GERD diet Recommend EGD to evaluate the gastric given ongoing epigastric pain Nothing by mouth at this time Qualifiers: Esophagitis presence: without esophagitis Qualified Code(s): K21.9 - Gastro-esophageal reflux disease without esophagitis - Time Spent With Patient Total time spent is greater than 50% in coordination of care (as documented) at patient's floor/unit and/or counseling patient: GI History of Present Illness - Data of Consult Requesting Physician: Wilfredo Seay MD - Consult Narrative History of present illness: Ms. Mcmullen is a 68 year old female with past medical history of hypertension, congestive heart failure, hyperlipidemia, COPD, GERD who presented to the ED complaining of shortness of breath and chest pressure. After receiving furosemide a sublingual nitroglycerin her shortness of breath chest pressure resolved in the ED. Additionally had complained of sharp and constant abdominal pain in the lower abdominal quadrants associated with nausea ongoing for a few days prior to presentation. She underwent CT of the abdomen and pelvis which showed uncomplicated sigmoid colon diverticulitis without evidence of abscess or pneumoperitoneum. She does report history of constipation with 2-3 bowel movements per week. Denies any previous episodes of diverticulitis. States her last colonoscopy was less than 5 years ago but it was poor prep and her colon could not be adequately visualized so may have underlying diverticulosis. Denies any melena or hematochezia. Does report that she previously had an EGD which showed ulcer and continues to have epigastric pain even with her home ranitidine and Prevacid use. This morning continues to complain of diffuse abdominal pain and feels bloated due to constipation. Denies fever, chills, chest pain. Past Med Surg Social Fam HX - Past Medical History Medical history: arthritis, CHF, COPD, coronary artery disease, GERD, hyperlipidemia, hypertension, other Additional medical history: angina, hypoglycemia Psychiatric history: no psych history - Past Surgical History Surgical History: appendectomy, cholecystectomy, other Additional surgical history: cyst removed from breast, right lower lobectomy, HISTOPLASOMOSIS - Social History Smoking Status: Former smoker Smokeless Tobacco Status: No Alcohol use: none Drug use: none - Family History Brother Family Member Ethnicity: Non- Living Status: Still Living Hx Family Endocrine Disorder: Yes (DM) Sister Family Member Ethnicity: Non- Living Status: Father Adopted: No Family Member Ethnicity: Non- Living Status: Hx Family Cardiac Disorders: Yes (CABG, HF, CAD) Hx Family Respiratory Disorders: Yes Hx Family Cancer: Yes Hx Family GI Disorders: Yes Hx Family Endocrine Disorder: Yes (DM) Hx Family Neuromuscular Disorders: No Hx Family Neurologic Disorders: No Hx Family HEENT Disorders: No Hx Family Autoimmune Disorders: No Mother Family Member Ethnicity: Non- Living Status: Still Living Hx Family Cardiac Disorders: Yes (5 stents, HD) Hx Family Endocrine Disorder: Yes - Gastrointestinal Gastrointestinal: Present: abdominal pain, nausea. Absent: constipation, diarrhea, vomiting - Constitutional Constitutional: no fatigue, no fever(s) - EENT Nose, mouth and throat: Absent: dysphagia, sore throat - Cardiovascular Cardiovascular ROS: Absent: chest pain, palpitations - Respiratory Respiratory IM: Present: dyspnea (Chronic). Absent: cough - Neurological ROS Neurological GI: Absent: tremor(s), weakness - Hematologic/Lymphatic Hematologic/Lymphatic pediatric: Absent: easy bleeding - Musculoskeletal Musculoskeletal ROS GI: Absent: back pain - Constitutional Vitals: Temp Pulse Resp BP Pulse Ox 98.6 F 73 16 127/76 96 12/01/18 06:59 12/01/18 06:59 12/01/18 07:56 12/01/18 04:22 12/01/18 07:56 - Head Head exam: Present: atraumatic, normal inspection - Eye Eye exam: Present: EOMI, sclera anicteric. Absent: conjunctival injection - ENT ENT exam: Present: mucous membranes moist, normal oropharynx - Neck Neck exam general surgery: Present: full ROM, trachea midline - Respiratory Respiratory exam: Present: CTAB. Absent: rhonchi, wheezes - Cardiovascular Cardiovascular exam: Present: RRR, +S1, +S2 - GI/Abdominal GI/Abdominal exam: Present: normal bowel sounds, tenderness (Diffuse with worsened left lower quadrant and epigastric region). Absent: distended - Skin Skin exam: Present: dry, intact Results - Labs CBC & Chem 7: 11/29/18 01:03 12/01/18 04:25 Labs: Last Result 12/01/18 04:25 Calcium 9.3 - ABG ABG results: PT/INR, D-dimer PT 11.6 Seconds (9.4-12.1) 11/28/18 14:29 Consult Discharge Plan - Plan Referrals: Shayna Ochoa MD [Partnered Physician] - Prescriptions: Lactobacillus Acidophilus [Acidophilus Lactobacilli] 1 each PO DAILY 30 Days #30 capsule Ciprofloxacin [Cipro] 500 mg PO BID 10 Days #20 tablet Carvedilol [Coreg] 6.25 mg PO BIDWM 30 Days #60 tablet Atorvastatin [Lipitor] 20 mg PO HS 30 Days #30 tablet metroNIDAZOLE [Metronidazole] 500 mg PO TID 10 Days #30 tablet HYDROcodone/Acet 5/325 mg [[place] 5-325 mg] 1 tab PO Q4HR PRN 5 Days #10 tablet PRN Reason: Pain Sennosides/Docusate Sodium [Senna Plus] 2 each PO BID PRN 15 Days #30 tablet PRN Reason: Constipation <Niranjan Can - Last Filed: 12/15/18 08:13> Date of Encounter: 12/01/18 - Time Spent With Patient Total time spent is greater than 50% in coordination of care (as documented) at patient's floor/unit and/or counseling patient: GI History of Present Illness - Data of Consult Requesting Physician: Wilfredo Seay MD - Consult Narrative History of present illness: Ms. Mcmullen is a 68 year old female - Constitutional Vitals: Temp Pulse Resp BP Pulse Ox 99.0 F 74 14 99/57 93 12/02/18 11:08 12/02/18 11:08 12/02/18 11:08 12/02/18 11:08 12/02/18 11:08 Results - Labs CBC & Chem 7: 11/29/18 01:03 12/02/18 01:33 - ABG ABG results: PT/INR, D-dimer PT 11.6 Seconds (9.4-12.1) 11/28/18 14:29 - Attending Attestation Patient admitted with Acute diverticulitis and GERD that has failed outpatient medical therapy. I examined this patient and my medical decision-making was reviewed with the Resident Physician. I agree with the documented findings, disposition and treatment plan as described except to the extent set forth below.
[2018-12-01] MEDS ORDERED: Isovue-370 500 ML BOTTLE IVP ONE (14:30)
--- NOTE | 2018-12-01 14:33 | Internal Med Progress Note ---
Hospitalist Progress Note - Encounter Date of Encounter: 12/01/18 Time of Encounter: 14:31 - Subjective Interval History: I have seen and evaluated the patient at bedside. patient reported significant improvement on her abdomen. reported the pain is aroudn 3/10 now. reported fullness sensation. denies chest pain, shortness of breath, nausea or vomiting. - Exam Vitals: Temp Pulse Resp BP Pulse Ox 98.2 F 82 16 111/82 93 12/01/18 11:11 12/01/18 11:11 12/01/18 11:11 12/01/18 11:11 12/01/18 11:11 Exam: Vitals: Reviewed General: Alert and oriented x4. In no distress Cardiovascular: RRR, normal S1 & S2, no rubs, murmurs or gallops. Lungs: No wheezes. crackles lober lobes R>L. Abdomen: Soft, no tenderness no rigidity. NABS in all 4 quadrants. Extremities: No edema Neurological: No focal neurological findings Rest of the physical exam is non contributory - Assessment and Plan (1) Chest pain Current Visit: Yes Status: Resolved Assessment and Plan: refused inpatient diagnostic testing. cardiology recommended outpatient cardiac CT angiogram c/w aspirin, bb and statin. (2) Diverticulitis Current Visit: Yes Status: Acute Assessment and Plan: abdominal pain with significant improvement. will continue IV antibiotics for the following 24 hours. GI consulted, recommended EGD tomorrow morning. NPO at night (3) CAD (coronary artery disease) Current Visit: No Status: Chronic Assessment and Plan: On aspirin 81 mg by mouth daily. (4) COPD (chronic obstructive pulmonary disease) Current Visit: No Status: Chronic Assessment and Plan: chest is clear to auscultation Plan: - on bronchodilators. Incentive spirometry. On Spiriva. (5) HTN (hypertension) Current Visit: No Status: Chronic Assessment and Plan: Blood pressures well controlled. c/w beta alverto and diuretic. (6) IBS (irritable bowel syndrome) Current Visit: No Status: Chronic (7) CHF (congestive heart failure) Current Visit: No Status: Chronic Assessment and Plan: patient with a negative fluid balance of 3.1 litter. continue furosemide 40mg/IV BID. strict intake and output, plus daily weight. (8) Kidney lesion Current Visit: Yes Status: Acute Assessment and Plan: CT abd/pelvis with IV contrast with kidney attenuation ordered. DVT Prophylaxis: On heparin subq - Summary of Assessment and Plan Summary of Assessment and Plan: patient to remain in the hospital due to chf, on IV diuretic. Potential discharge tomorrow - Time Spent with Patient Total time spent is greater than 50% in coordination of care (as documented) at patient's floor/unit and/or counseling patient: Greater than 35 minutes (45) Plan of Care Discussed with: patient (and the nurse.) Internal Medicine: Result - Labs CBC & Chem 7: 11/29/18 01:03 12/01/18 04:25 Labs: BMP 12/01/18 04:25 Sodium 140 Potassium 3.5 Chloride 99 Carbon Dioxide 30 H BUN 18 Creatinine 0.74 Glucose 150 H Calcium 9.3 - ABG Interpretation ABG results: PT/INR, D-dimer PT 11.6 Seconds (9.4-12.1) 11/28/18 14:29 Consult Discharge Plan - Plan Referrals: NONE,PCP [Primary Care Provider] - (1) Chest pain Qualifiers: Chest pain type: unspecified Qualified Code(s): R07.9 - Chest pain, unspecified (3) CAD (coronary artery disease) Qualifiers: Coronary Disease-Associated Artery/Lesion type: unspecified vessel or lesion type [place] vs. transplanted heart: [place] heart Associated angina: angina presence unspecified Qualified Code(s): I25.10 - Atherosclerotic heart disease of [place] coronary artery without angina pectoris (4) COPD (chronic obstructive pulmonary disease) Qualifiers: COPD type: chronic bronchitis Chronic bronchitis type: simple Qualified Code(s): J41.0 - Simple chronic bronchitis (5) HTN (hypertension) Qualifiers: Hypertension type: essential hypertension Qualified Code(s): I10 - Essential (primary) hypertension (6) IBS (irritable bowel syndrome) Qualifiers: Irritable bowel syndrome type: with diarrhea Qualified Code(s): K58.0 - Irritable bowel syndrome with diarrhea (7) CHF (congestive heart failure) Qualifiers: Heart failure type: diastolic Heart failure chronicity: chronic Qualified Code(s): I50.32 - Chronic diastolic (congestive) heart failure
[2018-12-01] MEDS ORDERED: D5% in Water 1,000 ML IVC PRN (14:34)
[2018-12-01] MEDS ORDERED: *HR* Dextrose 50 % in Water (Syg) 50 ML SYRINGE IVP PRN (14:34)
[2018-12-01] MEDS ORDERED: Dextrose Gel 15 GM/37.5 ML TUBE PO PRN ×2 (14:34)
[2018-12-01] MEDS: Insulin LISPRO 300 UNITS/3 ML VIAL SQ SCH (19:17)
[2018-12-01] MEDS: Ondansetron 4 MG/2 ML VIAL IVP PRN (19:26)
[2018-12-01] MEDS: Lactulose Oral Soln 20 GM/30 ML UDC PO SCH (21:25)
[2018-12-02] MEDS: MetroNIDAZOLE 500 MG/100 ML 500 MG/100 ML BAG IVPB SCH ×2 (00:23→09:22)
[2018-12-02] MEDS: Insulin LISPRO 300 UNITS/3 ML VIAL SQ SCH ×3 (00:36→12:29)
[2018-12-02 02:45] LABS: BUN/Creatinine Ratio 22 (6-26); Blood Urea Nitrogen 18 mg/dL (8-23); Calcium 9.2 mg/dL (8.6-10.3); Carbon Dioxide 31 mEq/L (23-29); Chloride 98 mEq/L (98-107); Glucose 142 mg/dL (70-105); Magnesium 1.7 mg/dL (1.6-2.6); Osmolality,Calculated 296 (280-300); Phosphorous 3.8 mg/dL (2.7-4.5); Potassium 3.2 mEq/L (3.5-5.1); Sodium 141 mEq/L (136-145); eGFR For African Americans > 60 (> 60); eGFR For Non-African Americans > 60 (> 60)
[2018-12-02] MEDS: Ondansetron 4 MG/2 ML VIAL IVP PRN (03:29)
[2018-12-02] MEDS: *HR* Heparin 5,000 UNIT/ML VIAL SQ SCH (05:23)
[2018-12-02] MEDS: Lactulose Oral Soln 20 GM/30 ML UDC PO SCH (09:16)
[2018-12-02] MEDS: Aspirin Enteric Coated 81 MG Tablet PO SCH (09:16)
[2018-12-02] MEDS: *HR* Acetylcysteine 20% 600 MG/3 ML ORAL SYRINGE PO SCH (09:18)
[2018-12-02] MEDS: Furosemide 40 MG/4 ML VIAL IVP SCH (09:22)
--- NOTE | 2018-12-02 09:48 | Discharge Summary ---
Date of Encounter: 12/02/18 Time of Encounter: 09:44 - Discharge Diagnosis (1) Chest pain Priority: Primary Status: Resolved Qualifiers: Chest pain type: unspecified Qualified Code(s): R07.9 - Chest pain, unspecified (2) Diverticulitis Priority: Primary Status: Acute (3) CAD (coronary artery disease) Priority: Secondary Status: Chronic Qualifiers: Coronary Disease-Associated Artery/Lesion type: unspecified vessel or lesion type [place] vs. transplanted heart: [place] heart Associated angina: angina presence unspecified Qualified Code(s): I25.10 - Atherosclerotic heart disease of [place] coronary artery without angina pectoris (4) COPD (chronic obstructive pulmonary disease) Priority: Secondary Status: Chronic Qualifiers: COPD type: chronic bronchitis Chronic bronchitis type: simple Qualified C ode(s): J41.0 - Simple chronic bronchitis (5) HTN (hypertension) Priority: Secondary Status: Chronic Qualifiers: Hypertension type: essential hypertension Qualified Code(s): I10 - Essential (primary) hypertension (6) IBS (irritable bowel syndrome) Priority: Secondary Status: Chronic Qualifiers: Irritable bowel syndrome type: with diarrhea Qualified Code(s): K58.0 - Irritable bowel syndrome with diarrhea (7) CHF (congestive heart failure) Priority: Secondary Status: Chronic Qualifiers: Heart failure type: diastolic Heart failure chronicity: chronic Qualified Code(s): I50.32 - Chronic diastolic (congestive) heart failure (8) Kidney lesion Priority: Secondary Status: Chronic Hospital course: Ms. Mcmullen is a 68 year old female PMH of HTN, HFpEF, HLD, COPD on 2 litter of O2. Patient presented to the hospital due to chest pressure and shortness of breath. Patient also reported abdominal pain which she believed was secondary to be due to a UTI, UA non diagnostic for UTI. A CT abd/pelvis done: Acute, uncomplicated sigmoid colon diverticulitis (no discrete abscess or pneumoperitoneum evident). 2. Nonspecific upper pole left kidney lesion. Patient admitted to the hospital due to chest pain r/o and acute diverticulitis. Patient was managed with IV broad spectrum antibiotics. chest pain resolved with nitroglycerin. TTE done: grade 2 vascular diatolic dysfunction. Patient refused a stress test. Cardiology consulted and recommended cardiac CTA but patient refused. GI consulted, patient reported GERD like symptoms, GI recommended EGD but patient refused as well. Patient is clinically stable to be discharged home on oral antibiotics. Abdominal discomfort on presentation has significantly improved and patient is toleration oral/regular diet. Recommended to follow up with GI as outpatient. - Time Spent with Patient Total time spent providing and/or coordinating discharge services: Time spent: Greater than 30 minutes (35) - Discharge Medications Prescriptions: New Carvedilol [Coreg] 6.25 mg PO BIDWM 30 Days #60 tablet Atorvastatin [Lipitor] 20 mg PO HS 30 Days #30 tablet Sennosides/Docusate Sodium [Senna Plus] 2 each PO BID PRN 15 Days #30 tablet PRN Reason: Constipation Lactobacillus Acidophilus [Acidophilus Lactobacilli] 1 each PO DAILY 30 Days #30 capsule Ciprofloxacin [Cipro] 500 mg PO BID 10 Days #20 tablet metroNIDAZOLE [Metronidazole] 500 mg PO TID 10 Days #30 tablet HYDROcodone/Acet 5/325 mg [[place] 5-325 mg] 1 tab PO Q4HR PRN 5 Days #10 tablet PRN Reason: Pain Continued Gabapentin [Neurontin] 800 mg PO TID Acetylcysteine [S-Qpnotn-r-Cysteine] 600 mg PO BID Tiotropium [Spiriva] 2 puff IH DAILY Mometasone/Formoterol [Dulera 200 Mcg/5 Mcg Inhaler] 1 puff IH DAILY Zafirlukast [Accolate] 40 mg PO DAILY Oxygen 2 l IH DAILY Aspirin Enteric Coated [Aspirin EC] 81 mg PO DAILY hydroCHLOROthiazide [Hydrochlorothiazide] 25 mg PO DAILY Furosemide [Lasix] 40 mg PO DAILY PRN PRN Reason: SWELLING Albuterol Neb [Proventil Neb] 2.5 mg IH QID Nitroglycerin [Nitrostat] 0.4 mg SL Q5MIN PRN PRN Reason: Chest Pain Albuterol Sulfate [Proair Hfa] 2 puff PO Q4-6H PRN PRN Reason: Shortness Of Breath Cetirizine HCl [Allergy Relief] 10 mg PO DAILY Dicyclomine Hcl [Bentyl] 20 mg PO ACHS Fexofenadine HCl 180 mg PO DAILY Fluticasone Propionate Nasal [Flonase] 2 spray NS DAILY Ibuprofen 800 mg PO TID PRN PRN Reason: Pain Ipratropium [ATROVENT Inhaler] 2 puff PO QID PRN PRN Reason: Shortness Of Breath Lansoprazole [Prevacid] 30 mg PO DAILY Meloxicam 15 mg PO DAILY Potassium Chloride [Klor-Con 10] 10 meq PO DAILY Ranitidine HCl [Zantac] 300 mg PO DAILY [place]-3 Fatty Acids/Dha/Epa [[place]-3 Softgel] 1 cap PO BID Home Medications: Acetylcysteine [F-Pgknns-u-Cysteine] 600 mg PO BID 01/03/18 [History] Albuterol Neb [Proventil Neb] 2.5 mg IH QID 01/03/18 [History] Aspirin Enteric Coated [Aspirin EC] 81 mg PO DAILY 01/03/18 [History] Furosemide [Lasix] 40 mg PO DAILY PRN 01/03/18 [History] Gabapentin [Neurontin] 800 mg PO TID 01/03/18 [History] Mometasone/Formoterol [Dulera 200 Mcg/5 Mcg Inhaler] 1 puff IH DAILY 01/03/18 [History] Nitroglycerin [Nitrostat] 0.4 mg SL Q5MIN PRN 01/03/18 [History] Oxygen 2 l IH DAILY 01/03/18 [History] Tiotropium [Spiriva] 2 puff IH DAILY 01/03/18 [History] Zafirlukast [Accolate] 40 mg PO DAILY 01/03/18 [History] hydroCHLOROthiazide [Hydrochlorothiazide] 25 mg PO DAILY 01/03/18 [History] Albuterol Sulfate [Proair Hfa] 2 puff PO Q4-6H PRN 11/29/18 [History] Cetirizine HCl [Allergy Relief] 10 mg PO DAILY 11/29/18 [History] Dicyclomine Hcl [Bentyl] 20 mg PO ACHS 11/29/18 [History] Fexofenadine HCl 180 mg PO DAILY 11/29/18 [History] Fluticasone Propionate Nasal [Flonase] 2 spray NS DAILY 11/29/18 [History] Ibuprofen 800 mg PO TID PRN 11/29/18 [History] Ipratropium [ATROVENT Inhaler] 2 puff PO QID PRN 11/29/18 [History] Lansoprazole [Prevacid] 30 mg PO DAILY 11/29/18 [History] Meloxicam 15 mg PO DAILY 11/29/18 [History] [place]-3 Fatty Acids/Dha/Epa [[place]-3 Softgel] 1 cap PO BID 11/29/18 [History] Potassium Chloride [Klor-Con 10] 10 meq PO DAILY 11/29/18 [History] Ranitidine HCl [Zantac] 300 mg PO DAILY 11/29/18 [History] Atorvastatin [Lipitor] 20 mg PO HS 30 Days #30 tablet 12/02/18 [Rx] Carvedilol [Coreg] 6.25 mg PO BIDWM 30 Days #60 tablet 12/02/18 [Rx] Ciprofloxacin [Cipro] 500 mg PO BID 10 Days #20 tablet 12/02/18 [Rx] HYDROcodone/Acet 5/325 mg [[place] 5-325 mg] 1 tab PO Q4HR PRN 5 Days #10 tablet 12/02/18 [Rx] Lactobacillus Acidophilus [Acidophilus Lactobacilli] 1 each PO DAILY 30 Days #30 capsule 12/02/18 [Rx] Sennosides/Docusate Sodium [Senna Plus] 2 each PO BID PRN 15 Days #30 tablet 12/02/18 [Rx] metroNIDAZOLE [Metronidazole] 500 mg PO TID 10 Days #30 tablet 12/02/18 [Rx] Allergies/Adverse Reactions: Allergy/AdvReac Type Severity Reaction Status Date / Time hydroxyzine [From Vistaril] Allergy Rash Verified 11/28/18 21:44 prednisone Allergy Rash Verified 11/28/18 21:44 Date of admission: 11/28/18 16:03 Primary care physician: PCP NONE Consults: 11/28/18 16:52 Consult to Cardiology [CONS] Routine Comment: Consulting Provider: Cardiology [place] Reason for Consult: chest pain. unable to obtain stress test, reported having an awful expirience with one. scheduled for cardiac MRI on Saturday Call Completed: No 11/30/18 12:29 Consult to Gastroenterology [CONS] Routine Consulting Provider: Gastroenterology [facility] Reason for Consult: acute diverticulitis Call Completed: No - Constitutional Vitals: Temp Pulse Resp BP Pulse Ox 98.7 F 71 16 124/81 93 12/02/18 07:17 12/02/18 07:17 12/02/18 07:17 12/02/18 02:57 12/02/18 07:17 Exam: Vitals: Reviewed General: Alert and oriented x4. In no distress Cardiovascular: RRR, normal S1 & S2, no rubs, murmurs or gallops. Lungs: CTA bl/, no wheezing, rales or crackles. Abdomen: Soft, no tenderness, no rigidity. NABS in all 4 quadrants. Extremities: No edema Neurological: No focal neurological findings Rest of the physical exam is non contributory - Patient Status Disposition: Home, Self-Care Condition: Good Functional capacity at discharge: independent ambulation Overall status at discharge: patient is progressing back to baseline - Discharge Instructions Follow Up With: NONE,PCP [Primary Care Provider] - Forms: ED Satisfaction Letter - Diet and Activity Activity: resume usual activities as tolerated Diet: low salt diet
[2018-12-02] MEDS: Tiotropium 18 MCG inhalation IH SCH (10:52)
--- NOTE | 2018-12-02 10:57 | Gastroenterology Progress Note ---
<Erika Stanley - Last Filed: 12/02/18 14:20> Date of Encounter: 12/02/18 Time of Encounter: 10:54 - Assessment and plan (1) Diverticulitis Status: Acute Assessment and plan: Presented to the ED with nausea and abdominal pain CT of the abdomen and pelvis shows multifocal diverticula involving descending and sigmoid colon with acute diffuse inflammation and sigmoid colon No previous history of diverticulitis Initially reported constipation this morning reports loose stools after receiving lactulose yesterday Reports colonoscopy was within 5 years ago but was poor prep and was able to adequately visualize colonic wall, should get a repeat colonoscopy after infection resolves Continue Cipro and Flagyl Further recommendations by Dr. Can Follow-up patient with GI (2) GERD (gastroesophageal reflux disease) Status: Chronic Assessment and plan: Reports chronic GERD with previous history of ulcer On Zantac and Prevacid home and continues to complain of epigastric pain Discussed GERD diet Was plan for EGD this morning but was unable to go forth with it due to nausea and epigastric pain Recommend outpatient EGD Qualifiers: Esophagitis presence: without esophagitis Qualified Code(s): K21.9 - Gastro-esophageal reflux disease without esophagitis - Time Spent With Patient Total time spent is greater than 50% in coordination of care (as documented) at patient's floor/unit and/or counseling patient: - Subjective Interval history: Ms. Ace was seen at bedside this morning. She reported nausea and epigastric pain this morning likely secondary to nothing by mouth. She stated she decided to eat breakfast and forego her planned EGD this morning. Reports her epigastric discomfort and nausea has resolved after meal. - Constitutional Vitals: Temp Pulse Resp BP Pulse Ox 98.7 F 71 16 124/81 93 12/02/18 07:17 12/02/18 07:17 12/02/18 07:17 12/02/18 02:57 12/02/18 07:17 - Head Head exam: Present: atraumatic, normocephalic - Eye Eye exam: Present: EOMI, sclera anicteric. Absent: conjunctival injection - ENT ENT exam: Present: mucous membranes moist, normal oropharynx - Neck Neck exam general surgery: Present: full ROM, trachea midline - Respiratory Respiratory exam: Present: CTAB. Absent: rhonchi, wheezes - Cardiovascular Cardiovascular exam: Present: RRR, +S1, +S2 - GI/Abdominal GI/Abdominal exam: Present: normal bowel sounds, soft. Absent: tenderness - Neurological Exam Neurological exam: Present: altered, oriented X3 - Skin Skin exam: Present: dry, intact Results - Labs CBC & Chem 7: 11/29/18 01:03 12/02/18 01:33 Labs: Last Result 12/02/18 01:33 Calcium 9.2 - ABG ABG results: PT/INR, D-dimer PT 11.6 Seconds (9.4-12.1) 11/28/18 14:29 - Impressions Impressions Abdomen/Pelvis CT 12/01/18 14:30 IMPRESSION: Improving uncomplicated sigmoid diverticulitis. There is mild diffuse colonic wall thickening which may be artifactual due to collapse or related to mild colitis. An area of cortical scarring is seen in the posterior upper pole left kidney with in the adjacent slightly exophytic triangular and linear area of tissue which likely represents an area of parenchymal scarring. This corresponds to the abnormality seen on noncontrast CT. This is poorly evaluated due to its small size and evaluation for enhancement is limited due to the single phase of imaging. Recommend 1 year follow-up to the stability. D/ / Nickie Dolan MD / Nickie Dolan MD Interpreting Provider: Nickie Dolan MD Consult Discharge Plan - Plan Referrals: Shayna Ochoa MD [Partnered Physician] - Prescriptions: Lactobacillus Acidophilus [Acidophilus Lactobacilli] 1 each PO DAILY 30 Days #30 capsule Ciprofloxacin [Cipro] 500 mg PO BID 10 Days #20 tablet Carvedilol [Coreg] 6.25 mg PO BIDWM 30 Days #60 tablet Atorvastatin [Lipitor] 20 mg PO HS 30 Days #30 tablet metroNIDAZOLE [Metronidazole] 500 mg PO TID 10 Days #30 tablet HYDROcodone/Acet 5/325 mg [[place] 5-325 mg] 1 tab PO Q4HR PRN 5 Days #10 tablet PRN Reason: Pain Sennosides/Docusate Sodium [Senna Plus] 2 each PO BID PRN 15 Days #30 tablet PRN Reason: Constipation <Niranjan Can - Last Filed: 12/15/18 07:48> Date of Encounter: 12/02/18 - Time Spent With Patient Total time spent is greater than 50% in coordination of care (as documented) at patient's floor/unit and/or counseling patient: - Constitutional Vitals: Temp Pulse Resp BP Pulse Ox 99.0 F 74 14 99/57 93 12/02/18 11:08 12/02/18 11:08 12/02/18 11:08 12/02/18 11:08 12/02/18 11:08 Results - Labs CBC & Chem 7: 11/29/18 01:03 12/02/18 01:33 - ABG ABG results: PT/INR, D-dimer PT 11.6 Seconds (9.4-12.1) 11/28/18 14:29 - Attending Attestation Patient presenting with epigastric and LLQ pain. CT confirms acute diverticulitis and she has been started on IV antibiotics. The epigastric pain continues and patient has history of longstanding GERD but, has failed outpatient medical manaagement. So will plan EGD this admission. I examined this patient and my medical decision-making was reviewed with the Resident Physician. I agree with the documented findings, disposition and saran atment plan as described except to the extent set forth below.
[2018-12-02 11:14] VITALS: BP 99/57
== END 2018-12-02 13:29 | disposition home or self-care (01) ==
LOC: EMEROOARM 13:38 → 3BNU 13:38 → SUATTDRO 16:03 → 3BNU 17:10
PROVIDERS: ADMIT Internal Medicine Nephrology; ATTEND Internal Medicine

== ENCOUNTER 2019-07-29 13:35 | Observation (INO) ==
[2019-07-29] MEDS ORDERED: Isovue-370 500 ML BOTTLE IVP ONE (13:58)
[2019-07-29 14:09] LABS: Hematocrit 44.2 % (35.3-44.9); Hemoglobin 14.7 g/dL (11.5-15.4); Mean Corpuscular HGB Conc 33.3 g/dL (31.6-35.5); Mean Corpuscular Hemoglobin 28.3 pg (28.0-33.3); Mean Corpuscular Volume 85.2 fL (83.0-100.0); Mean Platelet Volume 10.2 fL (9.4-12.4); Platelet Count 177 K/mcL (140-400); Red Blood Count 5.19 M/mcL (3.82-4.97); Red Cell Distribution Width 12.8 % (11.5-14.5); White Blood Count 8.4 K/mcL (4.3-11.1)
[2019-07-29 14:17] LABS: Prothrombin Time 10.8 Seconds (9.4-12.1)
[2019-07-29 14:19] LABS: Activated Partial Thrombo Time 30.6 Seconds (26.0-36.0)
[2019-07-29 14:29] LABS: BUN/Creatinine Ratio 29 (6-26); Blood Urea Nitrogen 20 mg/dL (8-23); Calcium 9.5 mg/dL (8.6-10.3); Carbon Dioxide 22 mEq/L (23-29); Chloride 104 mEq/L (98-107); Glucose 188 mg/dL (70-105); Osmolality,Calculated 290 (280-300); Potassium 4.4 mEq/L (3.5-5.1); Sodium 136 mEq/L (136-145); eGFR For African Americans > 60 (> 60); eGFR For Non-African Americans > 60 (> 60)
[2019-07-29 14:30] LABS: Troponin I < 0.03 ng/mL (< 0.04)
[2019-07-29] MEDS ORDERED: Aspirin 81 MG TAB.CHEW PO STA (15:40)
[2019-07-29] MEDS ORDERED: Naloxone 0.4 MG/ML INJ IVP PRN (16:33)
[2019-07-29] MEDS ORDERED: Ondansetron 4 MG/2 ML VIAL IVP PRN (16:33)
[2019-07-29] MEDS ORDERED: Sennosides/Docusate Sodium TABLET PO PRN (16:37)
[2019-07-29] MEDS ORDERED: predniSONE 20 MG TABLET PO ONE (17:00)
[2019-07-29] MEDS ORDERED: carvediloL 6.25 MG TABLET PO SCH (17:00)
[2019-07-29] MEDS ORDERED: *HR* LORazepam 2 MG/ML VIAL IVP PRN (17:22)
[2019-07-29] MEDS ORDERED: Loratadine 10 MG TABLET PO ONE (17:44)
[2019-07-29] MEDS: valACYclovir 500 MG TABLET PO SCH (19:45)
[2019-07-29] MEDS: Ibuprofen 800 MG TABLET PO PRN (23:19)
[2019-07-29] MEDS: Acetaminophen 325 MG TABLET PO PRN (23:19)
[2019-07-30] MEDS: *HR* Heparin 5,000 UNIT/ML VIAL SQ SCH ×4 (00:21→15:16)
[2019-07-30] MEDS ORDERED: Tetrahydrozoline 15 ML BOTTLE LEFT EYE ONE (00:23)
[2019-07-30] MEDS ORDERED: Tetrahydrozoline 15 ML BOTTLE BOTH EYES ONE (00:24)
[2019-07-30] MEDS: Gabapentin 300 MG CAPSULE PO SCH ×3 (00:53→13:20)
[2019-07-30] MEDS ORDERED: Loratadine 10 MG TABLET PO SCH (05:15)
[2019-07-30 06:07] LABS: INR 0.9; Prothrombin Time 10.2 Seconds (9.4-12.1)
[2019-07-30 06:41] LABS: BUN/Creatinine Ratio 34 (6-26); Blood Urea Nitrogen 27 mg/dL (8-23); Calcium 9.7 mg/dL (8.6-10.3); Carbon Dioxide 21 mEq/L (23-29); Chloride 101 mEq/L (98-107); Chol/HDL Ratio 4.6 (0-4.9); Cholesterol 257 mg/dL (< 200); Glucose 287 mg/dL (70-105); HDL Cholesterol 56 mg/dL (40-59); LDL Cholesterol,Calculated 157 mg/dL (0-99); Magnesium 1.9 mg/dL (1.6-2.6); Osmolality,Calculated 294 (280-300); Phosphorous 3.4 mg/dL (2.7-4.5); Potassium 4.2 mEq/L (3.5-5.1); Sodium 134 mEq/L (136-145); Triglycerides 222 mg/dL (< 150); eGFR For African Americans > 60 (> 60); eGFR For Non-African Americans > 60 (> 60)
[2019-07-30] MEDS ORDERED: Fluticasone Propionate Nasal 50 MCG/SPRAY BOTTLE NS SCH (09:00)
[2019-07-30] MEDS ORDERED: hydroCHLOROthiazide 25 MG TABLET PO SCH (09:00)
[2019-07-30] MEDS ORDERED: predniSONE 20 MG TABLET PO SCH ×2 (09:00)
[2019-07-30] MEDS ORDERED: FEXOFENADINE HCL 180 MG PO SCH (09:00)
[2019-07-30] MEDS ORDERED: Aspirin Enteric Coated 81 MG Tablet PO SCH (09:00)
[2019-07-30] MEDS ORDERED: Furosemide 40 MG TABLET PO PRN (09:01)
[2019-07-30] MEDS: valACYclovir 500 MG TABLET PO SCH ×2 (09:05→15:04)
[2019-07-30 09:08] LABS: Basophils % 0.1 %; Eosinophils % 0.1 %; Hemoglobin 13.9 g/dL (11.5-15.4); Immature Granulocytes % 1.4 % (0-4); Lymphocytes # 1.2 K/mcL (0.6-4.6); Lymphocytes % 13.1 %; Mean Corpuscular HGB Conc 33.9 g/dL (31.6-35.5); Mean Corpuscular Hemoglobin 28.9 pg (28.0-33.3); Mean Corpuscular Volume 85.2 fL (83.0-100.0); Monocytes # 0.2 K/mcL (0.0-1.3); Monocytes % 2.4 %; Neutrophils # 7.3 K/mcL (1.6-8.9); Platelet Count 215 K/mcL (140-400); Red Blood Count 4.81 M/mcL (3.82-4.97); Red Cell Distribution Width 12.5 % (11.5-14.5); Segmented Neutrophils % 82.9 %; White Blood Count 8.8 K/mcL (4.3-11.1)
[2019-07-30] MEDS ORDERED: Valsartan 160 MG TABLET PO SCH (09:15)
[2019-07-30] MEDS: Gabapentin 400 MG CAPSULE PO SCH ×2 (09:27→15:01)
[2019-07-30] MEDS: Acetaminophen 325 MG TABLET PO PRN ×2 (09:30→14:59)
[2019-07-30] MEDS: Ibuprofen 800 MG TABLET PO PRN (09:31)
[2019-07-30 09:57] LABS: Estimated Average Glucose 134 mg/dl
[2019-07-30] MEDS ORDERED: Tiotropium 18 MCG inhalation IH SCH (10:00)
[2019-07-30] MEDS ORDERED: *HR* Dextrose 50 % in Water (Syg) 50 ML SYRINGE IVP PRN (12:29)
[2019-07-30] MEDS ORDERED: Insulin LISPRO 300 UNITS/3 ML VIAL SQ SCH (12:29)
[2019-07-30] MEDS ORDERED: D5% in Water 1,000 ML IVC PRN (12:29)
[2019-07-30] MEDS ORDERED: Dextrose Gel 15 GM/37.5 ML TUBE PO PRN ×2 (12:29)
[2019-07-30] MEDS ORDERED: NON-FORMULARY MEDICATION 1 EACH EACH (Tiotropium Bromide [Spiriva Respimat] 2 PUFF) IH SCH (12:30)
[2019-07-30] MEDS ORDERED: Azithromycin 250 MG TABLET PO SCH (12:30)
[2019-07-30] MEDS ORDERED: Famotidine 20 MG TABLET PO SCH (12:30)
[2019-07-30] MEDS ORDERED: carvediloL 6.25 MG TABLET PO SCH (15:00)
[2019-07-30 15:05] VITALS: BP 172/69
[2019-07-30] MEDS: Albuterol 2.5 MG/3 ML NEBULIZER IH SCH (18:26)
[2019-07-30] MEDS ORDERED: *HR* Acetylcysteine 20% 600 MG/3 ML ORAL SYRINGE PO SCH (21:00)
[2019-07-30] MEDS ORDERED: Ketorolac OPTH Soln 5 ML BOTTLE LEFT EYE SCH (21:00)
[2019-07-30] MEDS ORDERED: Budesonide/Formoterol 160/4.5 1 PUFF INH IH SCH (22:00)
== END 2019-07-30 18:00 | disposition home health service (06) ==
LOC: EMEROOARM 13:35 → 3BNU 13:35 → SUATTDRO 15:44 → 3BNU 16:24
PROVIDERS: ADMIT Internal Medicine; ATTEND Internal Medicine